=== PATIENT | male | born 1945 | race Caucasian/White ===

== ENCOUNTER 2018-01-18 20:12 | Observation (INO) ==
[2018-01-19] MEDS ORDERED: *HR* LORazepam 2 MG/ML VIAL IVP PRN (00:21)
[2018-01-19] MEDS ORDERED: Naloxone 0.4 MG/ML INJ IVP PRN (00:21)
[2018-01-19] MEDS ORDERED: 0.9 % Sodium Chloride 1,000 ML IVC SCH (00:30)
[2018-01-19 01:06] LABS: Basophils % 0.4 %; Eosinophils % 0.4 %; Hemoglobin 14.5 g/dL (12.9-16.9); Immature Granulocytes % 0.1 % (0-4); Lymphocytes % 13.5 %; Mean Corpuscular HGB Conc 34.5 g/dL (31.6-35.5); Mean Corpuscular Hemoglobin 33.3 pg (28.0-33.3); Mean Corpuscular Volume 96.6 fL (83.0-100.0); Mean Platelet Volume 9.2 fL (9.4-12.4); Monocytes # 0.7 K/mcL (0.0-1.3); Neutrophils # 5.6 K/mcL (1.6-8.9); Platelet Count 250 K/mcL (140-400); Red Blood Count 4.35 M/mcL (4.19-5.50); Red Cell Distribution Width 14.6 % (11.5-14.5); Segmented Neutrophils % 76.6 %
[2018-01-19 01:10] LABS: Prothrombin Time 11.7 Seconds (9.4-12.1)
[2018-01-19 01:32] LABS: Alanine Aminotransferase 37 Units/L (7-52); Albumin 4.2 g/dL (3.5-5.7); Albumin/Globulin Ratio 1.6 (1.1-2.2); Alkaline Phosphatase 109 Units/L (34-104); Aspartate Amino Transferase 48 Units/L (13-39); BUN/Creatinine Ratio 23 (6-26); Bilirubin,Total 1.3 mg/dL (0.3-1.0); Blood Urea Nitrogen 20 mg/dL (8-23); Calcium 9.5 mg/dL (8.6-10.3); Carbon Dioxide 29 mEq/L (23-29); Chloride 102 mEq/L (98-107); Chol/HDL Ratio 1.8 (0-4.9); Cholesterol 169 mg/dL (< 200); Globulin 2.6 g/dL (2.4-3.5); Glucose 122 mg/dL (70-105); HDL Cholesterol 92 mg/dL (40-59); LDL Cholesterol,Calculated 68 mg/dL (0-99); Magnesium 2.2 mg/dL (1.6-2.6); Osmolality,Calculated 290 (280-300); Potassium 3.3 mEq/L (3.5-5.1); Sodium 138 mEq/L (136-145); Total Protein 6.8 g/dL (6.4-8.9); Triglycerides 47 mg/dL (< 150); eGFR For Non-African Americans > 60 (> 60)
[2018-01-19 01:44] LABS: Thyroid Stimulating Hormone 0.783 mcIU/mL (0.340-5.600)
[2018-01-19 01:51] LABS: Amphetamine Screen,Urine Negative ng/mL (Cutoff=1000); Barbiturate Screen,Urine Negative ng/mL (Cutoff=200); Benzodiazepines Screen,Urine Negative ng/mL (Cutoff=200); Cannabinoid Screen,Urine Negative ng/mL (Cutoff = 50); Cocaine Screen,Urine Negative ng/mL (Cutoff= 300); Opiate Screen,Urine Negative ng/mL (Cutoff=300); Phencyclidine Screen,Urine Negative ng/mL (Cutoff=25)
--- NOTE | 2018-01-19 02:35 | Internal Med History&Physical ---
Date of Encounter: 01/18/18 Time of Encounter: 23:00 Internal Medicine - H&P: HPI Chief complaint: new atrial fibrillation/RVR Admitted From: Hospital to Hospital Transfer Plans for Post Hospital Care: Home History of present illness: Mr. Zapata is a 72 year old male who presents in transfer from [facility] ER for concerns of new onset atrial fibrillation with rapid ventricular response. He was at a local [facility] when he was noted to become lightheaded and dizzy with racing heartbeat. He was brought to the ER in [place] where he was found to have evidence of atrial fibrillation with rapid ventricular response. He was given a dose of Cardizem with stabilization of rate control. Arrangements were then made to transfer patient to [facility] for ongoing workup and care. Upon arrival, I saw the patient on the floor shortly after he arrived. He appeared to be rate controlled but hypertensive. He also appeared to be somewhat intoxicated according to nursing staff. When I saw him, he was quite verbal, a little agitated, and a little jittery. He admits to occasional heavy alcohol use but denies any recent use. He has been in retirement for less than 24 hours. His last use was about 36 hours ago when he drank over 20 shots of vodka. He admits to occasional heavy use of alcohol roughly 3-4 times a week. He denies any prior history of heart problems. He admits to having blood pressure problems but he's been out of his blood pressure medications for a few weeks now. He denies any chest pain, shortness of breath, vomiting, or diarrhea. He has had palpitations and lightheadedness in retirement which prompted him to go the ER. Past Med Surg Social Fam HX - Past Medical History Attestation: Yes The following information was validated with the patient. Source: patient, other ([facility] ER notes) Medical history: hypertension Additional medical history: heavy alcohol use Psychiatric history: no psych history - Past Surgical History Surgical History: no surgical history - Social History Smoking Status: Never smoker Smokeless Tobacco Status: No Alcohol use: none Drug use: none Current living situation: Home - Independent Activity Level: Independent ambulation Recent Out of Country Travel Within the Last 8 Weeks: No - Family History Mother History Unknown: Yes Father History Unknown: Yes Internal Medicine - H&P: Meds Hydrochlorothiazide [Microzide] 12.5 mg PO DAILY 03/17/15 [History] Lisinopril [Zestril] 10 mg PO DAILY 03/17/15 [History] Metoprolol [Lopressor] 25 mg PO BID 03/17/15 [History] 3 Allergy/AdvReac Type Severity Reaction Status Date / Time No Known Allergies Allergy Verified 03/17/15 23:00 - Constitutional Constitutional: no chills, no fever(s), no night sweats - EENT Eyes: no blurry vision, no change in vision Ears: no ear pain, no tinnitus Nose, mouth and throat: no nasal congestion, no sinus pressure, no sore throat - Cardiovascular Cardiovascular ROS IM: irregular heart rhythm, lightheadedness, palpitations, no chest pain, no dyspnea, no syncope - Respiratory Respiratory: no cough, no hemoptysis, no chest congestion, no excessive phlegm production - Gastrointestinal Gastrointestinal: no abdominal pain, no diarrhea, no hematemesis, no hematochezia, no melena, no vomiting - Genitourinary Genitourinary ROS male: no dysuria, no flank pain, no hematuria - Musculoskeletal Musculoskeletal ROS IM: no arthralgias, no back pain - Integumentary Integumentary IM: no rash, no jaundice - Neurological Neurological ROS: dizziness, no focal weakness, no frequent falls, no headache(s ) - Psychiatric Psychiatric: anxiety, no depression - Endocrine Endocrine IM: no polydipsia, no polyuria - Hematologic/Lymphatic Hematologic/Lymphatic: no easy bruising - Allergic/Immunologic Allergic/Immunologic: no wheezing, no GI upset with certain foods - Constitutional Vitals: Temp Pulse Resp BP Pulse Ox 97.9 F 80 22 180/110 97 01/19/18 00:00 01/19/18 00:00 01/19/18 00:00 01/19/18 00:00 01/19/18 00:00 General appearance: Present: cooperative, disheveled, A&O X 3, answers questions appropriately Exam: anxious, jittery, suspect early etOH withdrawal - Head Head exam: Present: atraumatic, normal inspection - Eye Eye exam: Present: EOMI, PERRL. Absent: scleral icterus Pupils: Present: normal accommodation - ENT ENT exam: Present: mucous membranes dry, normal exam, normal oropharynx - Neck Neck exam general surgery: Present: full ROM, supple. Absent: tenderness, nuchal rigidity, thyromegaly - Respiratory Respiratory exam: Present: CTAB. Absent: chest wall tenderness, rales, respiratory distress, rhonchi, wheezes - Cardiovascular Cardiovascular exam: Present: irregular rhythm, +S1, +S2. Absent: diastolic murmur, systolic murmur, tachycardia - GI/Abdominal GI/Abdominal exam: Present: normal bowel sounds, soft. Absent: guarding, hepatomegaly, rebound, splenomegaly, tenderness - Extremities Exam Extremities exam: Present: full ROM, normal capillary refill, warm, radial pulses palpable and symmetrical. Absent: calf tenderness, pedal edema, tenderness - Back Exam Back exam: Absent: CVA tenderness (L), CVA tenderness (R) - Neurological Exam Neurological exam: Present: alert, CN II-XII intact, oriented X3, no focal deficits Additional comments: jittery, anxious, nervous, appears to be withdrawing from alcohol - Psychiatric Psychiatric exam: Present: agitated, anxious - Skin Skin exam: Present: dry, warm. Absent: rash Internal Med - H&P Results - Labs CBC & Chem 7: 01/19/18 00:50 01/19/18 00:50 Labs: Short CBC 01/19/18 Range/Units 00:50 WBC 7.3 (4.3-11.1) K/mcL Hgb 14.5 (12.9-16.9) g/dL Hct 42.0 (37.5-50.1) % Plt Count 250 (140-400) K/mcL Neutrophils # 5.6 (1.6-8.9) K/mcL BMP 01/19/18 00:50 Sodium 138 Potassium 3.3 L Chloride 102 Carbon Dioxide 29 BUN 20 Creatinine 0.88 Glucose 122 H Calcium 9.5 Cardiac Enzymes 01/19/18 Range/Units 00:50 Troponin I < 0.03 (< 0.04) ng/mL Liver Function 01/19/18 Range/Units 00:50 Total Bilirubin 1.3 H (0.3-1.0) mg/dL AST 48 H (13-39) Units/L ALT 37 (7-52) Units/L Alkaline Phosphatase 109 H (34-104) Units/L Albumin 4.2 (3.5-5.7) g/dL - EKG Data -: EKG Interpreted by Myself - EKG Data Prior EKG available for review: no EKG comments: 01/19/18 02:42 atrial fibrillation w RVR -- [facility] ER EKG reviewed - Diagnostic Studies Chest x-ray Status: image reviewed by me (negative) - Assessment and plan (1) Atrial fibrillation with RVR Current Visit: Yes Status: Acute Assessment and plan: 1. Currently rate controlled but still in atrial fibrillation. 2. Suspect "Holiday Heart" due to excessive etOH roughly [address] on BB and monitor on telemetry. 4. Trend troponins, EKG's, correct electrolytes, and check TSH. 5. Given alcohol abuse and current etOH withdrawal, patient at risk for falls, especially on anticoagulation. Need to start anti-coagulation cautiously if patient does not convert into NSR by tomorrow. 6. ECHO ordered. (2) Alcohol withdrawal Current Visit: Yes Status: Acute Assessment and plan: 1. Will place on CIWA protocol. 2. MVI/thiamine/folate per IVF. 3. May need to schedule Librium in addition to CIWA meds. 4. Urine drug screen and etOH level ordered. Qualifiers: Complication of substance-induced condition: uncomplicated Qualified Code(s ): F10.230 - Alcohol dependence with withdrawal, uncomplicated (3) Hypertension Current Visit: Yes Status: Chronic Assessment and plan: 1. Will place on BB and PRN hydralazine until home meds can be verified. 2. Likely precipitated by etOH withdrawal -- treat withdrawal as well. Qualifiers: Hypertension type: essential hypertension Qualified Code(s): I10 - Essential (primary) hypertension (4) DVT prophylaxis Current Visit: Yes Status: Acute Assessment and plan: 1. Heparin SQ for now. 2. May need to convert to full anti-coagulation pending above issues.
[2018-01-19] MEDS: *HR* Heparin 5,000 UNIT/ML VIAL SQ SCH ×2 (05:38→18:10)
[2018-01-19 08:54] LABS: BUN/Creatinine Ratio 21 (6-26); Blood Urea Nitrogen 16 mg/dL (8-23); Calcium 9.5 mg/dL (8.6-10.3); Carbon Dioxide 29 mEq/L (23-29); Chloride 100 mEq/L (98-107); Glucose 136 mg/dL (70-105); Osmolality,Calculated 285 (280-300); Potassium 3.5 mEq/L (3.5-5.1); Sodium 136 mEq/L (136-145); eGFR For Non-African Americans > 60 (> 60)
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
[2018-01-19] MEDS ORDERED: hydrALAZINE 10 MG TABLET PO PRN (10:53)
[2018-01-19] MEDS: Thiamine (B-1) 100 MG TABLET PO SCH (15:45)
[2018-01-19] MEDS: Multivit/Ca/Min/Fe/FA 1 TAB TABLET PO SCH (15:45)
[2018-01-19] MEDS: Folic Acid 1 MG TABLET PO SCH (15:45)
[2018-01-19] MEDS ORDERED: Thiamine (B-1) 100 MG, Folic Acid 1 MG, MVI, adult with vitamin K 10 ML in 0.9 % Sodi... IVPB SCH (18:00)
[2018-01-19] MEDS ORDERED: Melatonin 3 MG TABLET PO PRN (21:57)
[2018-01-20 05:09] LABS: Basophils % 0.6 %; Eosinophils # 0.1 K/mcL (0.0-0.6); Eosinophils % 1.4 %; Hematocrit 41.3 % (37.5-50.1); Hemoglobin 14.4 g/dL (12.9-16.9); Immature Granulocytes % 0.3 % (0-4); Lymphocytes # 1.3 K/mcL (0.6-4.6); Lymphocytes % 17.8 %; Mean Corpuscular HGB Conc 34.9 g/dL (31.6-35.5); Mean Corpuscular Hemoglobin 34.4 pg (28.0-33.3); Mean Corpuscular Volume 98.8 fL (83.0-100.0); Mean Platelet Volume 9.6 fL (9.4-12.4); Monocytes # 0.6 K/mcL (0.0-1.3); Neutrophils # 5.1 K/mcL (1.6-8.9); Platelet Count 206 K/mcL (140-400); Red Blood Count 4.18 M/mcL (4.19-5.50); Red Cell Distribution Width 14.4 % (11.5-14.5); Segmented Neutrophils % 71.9 %
[2018-01-20 05:31] LABS: Alanine Aminotransferase 25 Units/L (7-52); Albumin 3.6 g/dL (3.5-5.7); Albumin/Globulin Ratio 1.6 (1.1-2.2); Alkaline Phosphatase 93 Units/L (34-104); Aspartate Amino Transferase 28 Units/L (13-39); BUN/Creatinine Ratio 20 (6-26); Bilirubin,Total 0.9 mg/dL (0.3-1.0); Blood Urea Nitrogen 17 mg/dL (8-23); Calcium 9.2 mg/dL (8.6-10.3); Carbon Dioxide 28 mEq/L (23-29); Chloride 102 mEq/L (98-107); Globulin 2.2 g/dL (2.4-3.5); Glucose 121 mg/dL (70-105); Osmolality,Calculated 289 (280-300); Potassium 3.4 mEq/L (3.5-5.1); Sodium 138 mEq/L (136-145); Total Protein 5.8 g/dL (6.4-8.9); eGFR For Non-African Americans > 60 (> 60)
[2018-01-20] MEDS: *HR* Heparin 5,000 UNIT/ML VIAL SQ SCH ×2 (06:05→16:34)
[2018-01-20] MEDS: Multivit/Ca/Min/Fe/FA 1 TAB TABLET PO SCH (08:22)
[2018-01-20] MEDS: Thiamine (B-1) 100 MG TABLET PO SCH (08:22)
[2018-01-20] MEDS: Folic Acid 1 MG TABLET PO SCH (08:22)
[2018-01-20 08:59] LABS: Estimated Average Glucose 120 mg/dl; Hemoglobin A1C 5.8 %
[2018-01-20] MEDS ORDERED: *HR* Metoprolol 5 MG/5 ML VIAL IVP PRN (09:24)
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
[2018-01-20] MEDS: Lisinopril-HCTZ 20-12.5mg TABLET PO SCH ×2 (11:43→21:35)
--- NOTE | 2018-01-20 13:59 | Cardiology Consult Note ---
Date of Encounter: 01/20/18 Time of Encounter: 13:52 Assessment and Plan (1) Atrial fibrillation with RVR Current Visit: Yes Status: Acute (2) Heart failure with reduced ejection fraction Current Visit: Yes Status: Acute Qualifiers: Heart failure chronicity: acute Qualified Code(s): I50.21 - Acute systolic (congestive) heart failure Discussion w patient/family: The patient currently has a CHADSVASC score of 4. It is recommended that he be on anticoagulation therapy, but due to his history of heavy alcohol use he should wait to start therapy until he follows up outpatient to prevent complications associated with concurrent alcohol use and bleeding. The patient will also need a cardiac cath at some point to evaluate his decreased EF but this can also be managed as an outpatient. The assessment and plan as outlined above was discussed with the patient and/or family members who expressed understanding and agreement. All questions were answered. Thank you for involving us in the care of your patient. Please call with any questions. History of Present Illness Consult date: 01/20/18 Requesting physician: Kassidy Bryant Consult reason: afib RVR, reduced EF Chief complaint: dizziness w/ racing heartbeat History of present illness: Mr. Zapata is a 72 year old male who was transferred to [facility] after he was found to have new onset atrial fibrillation. He states he went to the [facility] ER from skilled nursing because he was lightheaded and dizzy and was intoxicated at this time. He also admits to some intermittent shortness of breath and palpitations over the past week but he attributes this to his high BP as he was not taking his medication. He has a past medical history of hypertension but denies other illnesses. He states he takes 3 medications for BP (HCTZ/Lisinopril, Clonidine and Metoprolol) and when he is on his medication his BP is 120/80 and his heart rate is in the 90s. He admits to undergoing a cardiac cath with placement of a stent about 15 years ago but states he has not had any cardiac procedures since this time. He admits to drinking heavily over the last 3 weeks, stating he has been consuming at least half a bottle of vodka per day with his maximum being 14 shots of vodka. Before this time he was drinking up to 10 beers per day, most days, over the past 15 years. He is a former smoker with 40 pack years but quit smoking over 10 years ago. He denies family history of any cardiac problems to his knowledge. Past Med Surg Social Fam HX - Past Medical History Attestation: Yes The following information was validated with the patient. Source: patient Medical history: hypertension Additional medical history: heavy alcohol use Psychiatric history: no psych history - Past Surgical History Surgical History: angioplasty/stent - Social History Smoking Status: Former smoker Smokeless Tobacco Status: No Alcohol use: none, heavy Drug use: none Occupational status: retired Current living situation: With Family - Family History Mother History Unknown: Yes Father History Unknown: Yes Medications and Allergies Metoprolol [Lopressor] 25 mg PO DAILY 03/17/15 [History] Lisinopril/Hydrochlorothiazide [Zestoretic 20-12.5 mg Tablet] 1 tab PO BID 01/19 [History] cloNIDine HCl [CloNIDine HCl] 0.1 mg PO BID 01/19/18 [History] 3 Allergy/AdvReac Type Severity Reaction Status Date / Time No Known Allergies Allergy Verified 01/19/18 13:25 All Systems Review: The remainder of the systems were reviewed and are negative - Constitutional Constitutional: no fever(s), no headache(s), no weight gain - EENT Eyes: no blurred vision, no loss of vision - Cardiovascular Cardiovascular: dyspnea on exertion, irregular heart rhythm, palpitations, no chest pain at rest, no chest pain with exertion, no dyspnea at rest, no radiating jaw, neck or arm pain, no leg edema, no orthopnea, no syncope - Respiratory Respiratory: dyspnea, no cough - Gastrointestinal Gastrointestinal: no abdominal pain, no nausea - Genitourinary Genitourinary: no dysuria, no hematuria - Musculoskeletal Musculoskeletal: no muscle cramps, no muscle weakness - Integumentary Integumentary: no rash - Neurological Neurological: dizziness, no abnormal speech, no syncope Physical Examination Vital Signs, Last 4 Hours Temp Pulse Resp BP Pulse Ox 01/20/18 11:30 97.9 F 103 16 166/104 95 General: Conversant HEENT: Atraumatic, Normocephaly, Mucus Membranes Moist Neck: No JVD, Normal carotid pulses Cardiac: No Murmur, Other (irregular HR) Lungs: Normal Breath Sounds, No Wheeze, Rales, Rhonchi Neuro: Alert and responsive, No focal deficits noted Abdomen: Soft, Non-Tender Skin: No rashes noted on visualized skin Musculoskeletal: No Chest Wall Tenderness Extremities: No Edema, Normal Pulses Results 01/20/18 04:15 01/20/18 04:15 Lab Results 01/20/18 01/20/18 04:15 04:15 WBC 7.1 Hgb 14.4 Hct 41.3 Plt Count 206 Sodium 138 Potassium 3.4 L Chloride 102 Carbon Dioxide 28 BUN 17 Creatinine 0.84 Glucose 121 H Calcium 9.2 Total Bilirubin 0.9 AST 28 ALT 25 Alkaline Phosphatase 93 Consult Discharge Plan - Plan Referrals: Corin Cannon, MANAGER INFUSION [Advanced Practice Nurse] - (patient said he didn't want me to set him up with an appoinment because he doesn't have any money to pay for the visit.)
[2018-01-20] MEDS ORDERED: hydrALAZINE 10 MG TABLET PO PRN (14:00)
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
[2018-01-20] MEDS ORDERED: Isovue-370 500 ML INFUS..BTL IV ONE (17:08)
--- NOTE | 2018-01-20 17:13 | Podiatry Consult Note ---
Date of Encounter: 01/21/18 Time of Encounter: 17:00 Assessment and Plan (1) Left foot pain Current visit: Yes Status: Acute Examined at bedside- There is noted warmth of entire left foot- with patient reports of pain to the dorsal foot just proximal to the ankle joint. There is a fluctuant mass noted in this area measuring [id number] with pain to touch- concerning for abscess formation There is a healed abrasion measuring 1cmx0.3cm to the plantar aspect of toe #1 left- possible entry point. There are no other ulcerations or abrasions noted to foot Will order uric acid to rule out gout however suspicion of gout is minimal Will order CT scan to assess for abscess formation- Xray is noted and no osseous abnormality was noted Continue antibiotic therapy Monitor VS and labwork Will follow up in AM when CT results have posted History of Present Illness HPI: Mr. Zapata is a 72 year old male who was brought to [facility] from [facility] and admitted for afib- patient has been consulted to podiatry services regarding patient complaints of a painful left foot. Nurse notes that great toe was red this AM and she has watched it extend back as the day went on. Patient reports that he only recalls it starting to hurt this am. There is a healing abrasion noted to the plantar aspect of the toe - patient reports that he does not know when or how that happened. Patient is a poor historian. he admits to a large amount of alcohol consumption daily. Patient reports severe pain to foot with palpation. Patient denies any other known lesions or open areas. Patient denies any trauma to foot. Past Med Surg Social Fam HX - Past Medical History Medical history: hypertension Additional medical history: heavy alcohol use Psychiatric history: no psych history - Past Surgical History Surgical History: angioplasty/stent - Social History Smoking Status: Former smoker Smokeless Tobacco Status: No Alcohol use: none, heavy Drug use: none - Family History Mother History Unknown: Yes Father History Unknown: Yes Medications and Allergies Lisinopril/Hydrochlorothiazide [Zestoretic 20-12.5 mg Tablet] 1 tab PO BID 01/19 [History] Aspirin 81 mg PO DAILY tab.chew 01/21/18 [Rx] Cephalexin [Keflex] 500 mg PO Q6H 10 Days capsule 01/21/18 [Rx] Folic Acid 1 mg PO DAILY #30 tablet 01/21/18 [Rx] Metoprolol [Lopressor] 25 mg PO BID 30 Days tablet 01/21/18 [Rx] Multivit/Ca/Min/Fe/FA [Thera M Plus] 1 tab PO DAILY #30 tablet 01/21/18 [Rx] Thiamine (B-1) [Vitamin B-1] 100 mg PO DAILY #30 tablet 01/21/18 [Rx] amLODIPine [Norvasc] 5 mg PO DAILY #30 tablet 01/21/18 [Rx] 3 Allergy/AdvReac Type Severity Reaction Status Date / Time No Known Allergies Allergy Verified 01/19/18 13:25 All Systems Reviewed: The remainder of the systems were reviewed and are negative Physical Exam - Constitutional Vitals: Temp Pulse Resp BP Pulse Ox 98.5 F 88 16 145/91 94 01/20/18 15:09 01/20/18 15:09 01/20/18 15:09 01/20/18 15:09 01/20/18 15:09 Exam: General Examination: CONSTITUTIONAL: Alert, oriented, in no acute distress, non-toxic. EXTREMITIES: CFT 3 seconds all toes. Edema +1 right and 2+ to dorsal aspect of foot leg and pedal pulses palpable. SKIN: Skin with decreased turgor, decreased subcutaneous tissue, skin thin and shiny with trophic changes associated with comorbidities as described in history.. There is noted edema and erytehma to left foot. Starting at great toe and extending along dorsal aspect of foot. There is an area of fluctuance noted just distal to the ankle, dorsal foot- [id number]. Pain associated with palpation of area. There is no noted ulceration however there is a small healed dry scab to the plantar aspect of toe #1 right- unknown cause. 1cmx0.2cm No limited ROM. No weakness noted. NEUROLOGIC: Grossly intact epicritic and vibratory sensation from toes to tibia, evidenced with use of monofilament 5.07 and tuning fork at 128 CPS. Patient complains of paresthesias and dysesthesias. There is no clinical evidence of loss of protective sensation. Results - Labs Result Diagrams: 01/21/18 05:41 01/21/18 05:41 Labs: Abnormal lab results RBC 4.18 M/mcL (4.19-5.50) L 01/20/18 04:15 MCH 34.4 pg (28.0-33.3) H 01/20/18 04:15 Potassium 3.4 mEq/L (3.5-5.1) L 01/20/18 04:15 Glucose 121 mg/dL (70-105) H 01/20/18 04:15 Hemoglobin A1c 5.8 % (-5.6) H 01/20/18 04:15 Serum Total Protein 5.8 g/dL (6.4-8.9) L 01/20/18 04:15 Globulin 2.2 g/dL (2.4-3.5) L 01/20/18 04:15 HDL Cholesterol 92 mg/dL (40-59) H 01/19/18 00:50 H & H 01/20/18 Range/Units 04:15 Hgb 14.4 (12.9-16.9) g/dL Hct 41.3 (37.5-50.1) % All other labs normal. Consult Discharge Plan - Plan Instructions: Cephalexin (By mouth), Metoprolol (By mouth), Folic Acid (By mouth), Multivitamins, Adult Formula (By mouth), Amlodipine (By mouth), Vitamin B Complex (By mouth), Atrial Fibrillation (DC), Abuse of Alcohol (DC), Abuse of Alcohol (GEN), Chronic Hypertension (DC) Additional Instructions: Take keflex every 6 hours for 10 days. Follow up with podiatry clinic within 7 days for further evaluation of painful left foot. Continue taking norvasc 5mg once daily, lisinopril/HCTZ 20-12.5mg daily, and metoprolol 25mg twice per day. Do not resume taking clonidine. Follow up with your PCP in 3-5 days. Follow up with cardiology as outpatient for further evaluation of new-onset atrial fibrillation. Return to the ED if you develop fever, chills, or other signs of infection, or if new concerns arise. Referrals: Noel Galo DPM [Partnered Physician] - Corin Cannon DISTRIBUTION ACCOUNTING CLERK [Advanced Practice Nurse] - (patient said he didn't want me to set him up with an appoinment because he doesn't have any money to pay for the visit.) Prescriptions: amLODIPine [Norvasc] 5 mg PO DAILY #30 tablet Cephalexin [Keflex] 500 mg PO Q6H 10 Days capsule Folic Acid 1 mg PO DAILY #30 tablet Metoprolol [Lopressor] 25 mg PO BID 30 Days tablet Multivit/Ca/Min/Fe/FA [Thera M Plus] 1 tab PO DAILY #30 tablet Thiamine (B-1) [Vitamin B-1] 100 mg PO DAILY #30 tablet
[2018-01-21] MEDS: *HR* Heparin 5,000 UNIT/ML VIAL SQ SCH (06:15)
[2018-01-21 06:16] LABS: Basophils % 0.6 %; Eosinophils # 0.1 K/mcL (0.0-0.6); Eosinophils % 1.4 %; Hematocrit 40.1 % (37.5-50.1); Immature Granulocytes % 0.4 % (0-4); Lymphocytes # 1.2 K/mcL (0.6-4.6); Lymphocytes % 17.2 %; Mean Corpuscular HGB Conc 34.9 g/dL (31.6-35.5); Mean Corpuscular Hemoglobin 34.7 pg (28.0-33.3); Mean Corpuscular Volume 99.3 fL (83.0-100.0); Mean Platelet Volume 9.4 fL (9.4-12.4); Monocytes # 0.6 K/mcL (0.0-1.3); Monocytes % 8.3 %; Neutrophils # 5.2 K/mcL (1.6-8.9); Platelet Count 198 K/mcL (140-400); Red Blood Count 4.04 M/mcL (4.19-5.50); Red Cell Distribution Width 14.2 % (11.5-14.5); Segmented Neutrophils % 72.1 %
[2018-01-21 06:39] LABS: Alanine Aminotransferase 21 Units/L (7-52); Albumin 3.6 g/dL (3.5-5.7); Albumin/Globulin Ratio 1.4 (1.1-2.2); Alkaline Phosphatase 92 Units/L (34-104); Aspartate Amino Transferase 24 Units/L (13-39); BUN/Creatinine Ratio 16 (6-26); Bilirubin,Total 0.9 mg/dL (0.3-1.0); Blood Urea Nitrogen 14 mg/dL (8-23); Calcium 8.9 mg/dL (8.6-10.3); Carbon Dioxide 29 mEq/L (23-29); Chloride 100 mEq/L (98-107); Globulin 2.5 g/dL (2.4-3.5); Glucose 137 mg/dL (70-105); Osmolality,Calculated 283 (280-300); Potassium 3.4 mEq/L (3.5-5.1); Sodium 135 mEq/L (136-145); Total Protein 6.1 g/dL (6.4-8.9); eGFR For Non-African Americans > 60 (> 60)
[2018-01-21] MEDS: Lisinopril-HCTZ 20-12.5mg TABLET PO SCH (09:02)
[2018-01-21] MEDS: Thiamine (B-1) 100 MG TABLET PO SCH (09:02)
[2018-01-21] MEDS: Multivit/Ca/Min/Fe/FA 1 TAB TABLET PO SCH (09:02)
[2018-01-21] MEDS: Folic Acid 1 MG TABLET PO SCH (09:03)
[2018-01-21] MEDS ORDERED: cloNIDine HCl 0.1 MG TABLET PO SCH (10:00)
[2018-01-21] MEDS ORDERED: Piperacillin/Tazobactam 3.375 GM in 0.9 % Sodium Chloride Mini Bag 100 ML IVPB SCH (11:00)
[2018-01-21] MEDS ORDERED: amLODIPine 5 MG TABLET PO SCH (11:30)
[2018-01-21] MEDS ORDERED: Aspirin 81 MG TAB.CHEW PO SCH (11:30)
--- NOTE | 2018-01-21 16:19 | Podiatry Progress Note ---
Date of Encounter: 01/21/18 Time of Encounter: 12:00 - Assessment and Plan (1) Left foot pain Status: Acute Examined at bedside- There is noted warmth of entire left foot- with patient reports of pain to the dorsal foot just proximal to the ankle joint. There is a fluctuant mass noted in this area measuring [id number] with pain to touch- concerning for abscess formation There is a healed abrasion measuring 1cmx0.3cm to the plantar aspect of toe #1 left- possible entry point. There are no other ulcerations or abrasions noted to foot Uric acid 6.1 and minimal concern for acute gout attack Ct scan shows no fluid collection Still continue to note fluctuant mass to dorsal aspect of foot Spoke with patient about aspirating lesion Informed consent obtained Cleansed with alcohol - injected with 3cc lidocaine- noting profound anesthesia the area of suspicion was injected with a sharp 18g needle and aspiration attempted- scant amount of blood was returned but no drainage. Aspirated around mulitple planes surrounding mass- again no drainage extracted Removed needle- no further bleeding noted Bandaid applied Continue current antibiotic therapy- there has been noted improvement If foot continues to have noted edema and erythema without improvement consider MRI Consider ID consult at this time Xray is noted and no osseous abnormality was noted Subjective Interval history: Following patient regarding edema, warmth, erythema and pain of left foot with possible abscess. Patient resting comfortably in bed on arrival. States pain has decreased some. States he can stand for it to be touched now. Patient denies any fevers, chills n/v or flu like symptoms. Patient has been receiving IV antibiotics. No reported fevers. Objective - Vital Signs Vital Signs: Vital Signs Temp Pulse Resp BP Pulse Ox 01/21/18 11:32 98.1 F 85 16 148/113 97 01/21/18 07:46 98.0 F 97 16 151/101 97 01/21/18 04:30 97.9 F 93 15 149/93 97 01/21/18 00:07 98.8 F 75 16 128/82 97 01/20/18 19:27 98.7 F 85 15 134/99 95 Intake and Output 01/21/18 01/21/18 01/21/18 07:59 15:59 23:59 Intake Total 0 / 0 240 / 240 Output Total 200 / 200 Balance -200 / -200 240 / 240 Intake: Oral 0 / 0 240 / 240 Output: Urine 200 / 200 Other: Meal Lunch Percent of Meal Consumed 0% Stool Size Small # Bowel Movements 1 Weight 81 kg Patient Weight 01/21/18 23:59 Weight 81 kg - Exam Exam: General Examination: CONSTITUTIONAL: Alert, oriented, in no acute distress, non-toxic. EXTREMITIES: CFT 3 seconds all toes. Edema +1 right and 2+ to dorsal aspect of foot leg and pedal pulses palpable. SKIN: Skin with decreased turgor, decreased subcutaneous tissue, skin thin and shiny with trophic changes associated with comorbidities as described in history.. There is noted edema and erytehma to left foot. Starting at great toe and extending along dorsal aspect of foot. There is improvement in appearance of erythema today as compared to yesterday- There is a continued small area of fluctuance noted just distal to the ankle, dorsal foot- [id number]. This has depleted some since exam yesterday- edema more diffuse. Pain associated with palpation of area. There is no noted ulceration however there is a small healed dry scab to the plantar aspect of toe #1 right- unknown cause. 1cmx0.2cm No limited ROM. No weakness noted. NEUROLOGIC: Grossly intact epicritic and vibratory sensation from toes to tibia, evidenced with use of monofilament 5.07 and tuning fork at 128 CPS. Patient complains of paresthesias and dysesthesias. There is no clinical evidence of loss of protective sensation. - Lab Result Diagrams: 01/21/18 05:41 01/21/18 05:41 Labs: Abnormal lab results RBC 4.04 M/mcL (4.19-5.50) L 01/21/18 05:41 MCH 34.7 pg (28.0-33.3) H 01/21/18 05:41 Sodium 135 mEq/L (136-145) L 01/21/18 05:41 Potassium 3.4 mEq/L (3.5-5.1) L 01/21/18 05:41 Glucose 137 mg/dL (70-105) H 01/21/18 05:41 Hemoglobin A1c 5.8 % (-5.6) H 01/20/18 04:15 Serum Total Protein 6.1 g/dL (6.4-8.9) L 01/21/18 05:41 HDL Cholesterol 92 mg/dL (40-59) H 01/19/18 00:50 Consult Discharge Plan - Plan Instructions: Cephalexin (By mouth), Metoprolol (By mouth), Folic Acid (By mouth), Multivitamins, Adult Formula (By mouth), Amlodipine (By mouth), Vitamin B Complex (By mouth), Atrial Fibrillation (DC), Abuse of Alcohol (DC), Abuse of Alcohol (GEN), Chronic Hypertension (DC) Additional Instructions: Take keflex every 6 hours for 10 days. Follow up with podiatry clinic within 7 days for further evaluation of painful left foot. Continue taking norvasc 5mg once daily, lisinopril/HCTZ 20-12.5mg daily, and metoprolol 25mg twice per day. Do not resume taking clonidine. Follow up with your PCP in 3-5 days. Follow up with cardiology as outpatient for further evaluation of new-onset atrial fibrillation. Return to the ED if you develop fever, chills, or other signs of infection, or if new concerns arise. Referrals: Noel Galo DPM [Partnered Physician] - Corin Cannon CNP [Advanced Practice Nurse] - (patient said he didn't want me to set him up with an appoinment because he doesn't have any money to pay for the visit.) Prescriptions: amLODIPine [Norvasc] 5 mg PO DAILY #30 tablet Cephalexin [Keflex] 500 mg PO Q6H 10 Days capsule Folic Acid 1 mg PO DAILY #30 tablet Metoprolol [Lopressor] 25 mg PO BID 30 Days tablet Multivit/Ca/Min/Fe/FA [Thera M Plus] 1 tab PO DAILY #30 tablet Thiamine (B-1) [Vitamin B-1] 100 mg PO DAILY #30 tablet
[2018-01-21 16:30] VITALS: BP 189/113
[2018-01-21] MEDS ORDERED: Aminoglycoside Consult 1 EACH MC ONE (17:31)
== END 2018-01-21 17:32 | disposition home or self-care (01) ==
LOC: 2NENU → SUATTDRO 21:25
PROVIDERS: ADMIT Family Medicine; ATTEND Internal Medicine

== ENCOUNTER 2018-01-23 16:22 | Inpatient (IN) ==
[2018-01-23] MEDS ORDERED: Piperacillin/Tazobactam 3.375 GM in 0.9 % Sodium Chloride Mini Bag 100 ML IVPB ONE (16:46)
[2018-01-23] MEDS ORDERED: 0.9 % Sodium Chloride 1,000 ML IVC ONE (16:48)
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
[2018-01-23 17:04] LABS: Basophils % 0.3 %; Eosinophils % 0.2 %; Hematocrit 42.1 % (37.5-50.1); Hemoglobin 14.9 g/dL (12.9-16.9); Immature Granulocytes % 0.4 % (0-4); Lymphocytes # 1.5 K/mcL (0.6-4.6); Lymphocytes % 16.2 %; Mean Corpuscular HGB Conc 35.4 g/dL (31.6-35.5); Mean Corpuscular Hemoglobin 34.7 pg (28.0-33.3); Mean Corpuscular Volume 97.9 fL (83.0-100.0); Mean Platelet Volume 9.2 fL (9.4-12.4); Monocytes % 10.1 %; Neutrophils # 6.9 K/mcL (1.6-8.9); Platelet Count 238 K/mcL (140-400); Red Cell Distribution Width 13.7 % (11.5-14.5); Segmented Neutrophils % 72.8 %
[2018-01-23 17:16] LABS: INR 1.1; Prothrombin Time 12.1 Seconds (9.4-12.1)
[2018-01-23 17:25] LABS: BUN/Creatinine Ratio 10 (6-26); Blood Urea Nitrogen 10 mg/dL (8-23); Calcium 9.6 mg/dL (8.6-10.3); Carbon Dioxide 27 mEq/L (23-29); Chloride 96 mEq/L (98-107); Glucose 156 mg/dL (70-105); Osmolality,Calculated 278 (280-300); Sodium 133 mEq/L (136-145); Troponin I < 0.03 ng/mL (< 0.04); eGFR For Non-African Americans > 60 (> 60)
[2018-01-23 17:54] LABS: Acetaminophen < 10 mcg/mL (10-20); Ethanol < 10 mg/dL (Less than 10); Salicylate < 2.5 mg/dL (15.0-30.0)
[2018-01-23] MEDS ORDERED: *HR* OxyCODONE Immed Rel 5 MG TABLET PO PRN (18:02)
[2018-01-23] MEDS ORDERED: traMADol 50 MG TABLET PO PRN (18:02)
[2018-01-23] MEDS ORDERED: Naloxone 0.4 MG/ML INJ IVP PRN (18:02)
[2018-01-23] MEDS ORDERED: Acetaminophen 325 MG TABLET PO PRN (18:02)
--- NOTE | 2018-01-23 18:12 | Emergency Department Note ---
Disposition Clinical Impression: Atrial fibrillation with RVR Chest pain Qualifiers: Chest pain type: unspecified Qualified Code(s): R07.9 - Chest pain, unspecified Cellulitis Qualifiers: Site of cellulitis: extremity Site of cellulitis of extremity: lower extremity Laterality: left Qualified Code(s): L03.116 - Cellulitis of left lower limb Disposition: Admitted As Inpatient Referrals: NONE,PCP [Primary Care Provider] - Forms: ED Satisfaction Letter General Adult HPI - General Chief complaint: ED Chest Pain Stated complaint: "Chest Tightness/Left Foot Infection/Pain" Time Seen by Provider: 01/23/18 16:28 Source: patient, family Mode of arrival: private vehicle Limitations: no limitations - History of Present Illness Pain Scale: 5 - Related Data Home Medications Medication Instructions Recorded Confirmed Lisinopril/Hydrochlorothiazide 1 tab PO BID 01/19/18 01/23/18 [Zestoretic 20-12.5 mg Tablet] Previous Rx's Medication Instructions Recorded Aspirin 81 mg PO DAILY tab.chew 01/21/18 Cephalexin [Keflex] 500 mg PO Q6H 10 Days capsule 01/21/18 Folic Acid 1 mg PO DAILY #30 tablet 01/21/18 Metoprolol [Lopressor] 25 mg PO BID 30 Days tablet 01/21/18 Multivit/Ca/Min/Fe/FA [Thera M 1 tab PO DAILY #30 tablet 01/21/18 Plus] Thiamine (B-1) [Vitamin B-1] 100 mg PO DAILY #30 tablet 01/21/18 amLODIPine [Norvasc] 5 mg PO DAILY #30 tablet 01/21/18 Allergies Allergy/AdvReac Type Severity Reaction Status Date / Time No Known Allergies Allergy Verified 01/19/18 13:25 Constitutional: Denies: fever, chills Eyes: Denies: vision change ENT ED: Denies: throat pain, congestion Cardiovascular: Reports: chest pain, palpitations. Denies: dyspnea on exertion Respiratory: Denies: cough, dyspnea Gastrointestinal: Denies: abdominal pain, nausea Genitourinary: Denies: dysuria Musculoskeletal: Denies: back pain Integumentary: Reports: other (Left foot redness and mild swelling) Neurological: Denies: headache, weakness Hematological/Lymphatic: Denies: easy bleeding Past Medical History - Past Medical History Medical history: Reports: atrial fibrillation, hypertension Surgical history: Reports: angioplasty/stent Psychiatric history: Reports: no psych history - Social History Smoking Status: Former smoker Smokeless Tobacco Status: No Alcohol use: Reports: heavy Drug use: Reports: none Physical Exam - General Limitations: no limitations General appearance: alert, in no apparent distress Course Vital Signs Temperature 98.4 F 01/23/18 16:26 Pulse Rate 142 01/23/18 16:26 Respiratory Rate 18 01/23/18 16:26 Blood Pressure 134/94 01/23/18 16:26 O2 Sat by Pulse Oximetry 98 01/23/18 16:26 Temperature 98.4 F 01/23/18 16:33 Pulse Rate 105 01/23/18 18:07 Respiratory Rate 20 01/23/18 18:07 Blood Pressure 142/103 01/23/18 18:07 O2 Sat by Pulse Oximetry 97 01/23/18 18:07 Oxygen Delivery Oxygen Delivery Room Air Medical Decision Making - Lab Data Result diagrams: 01/23/18 16:48 01/23/18 16:48 Lab Results 01/23/18 01/23/18 01/23/18 Range/Units 16:38 16:48 16:48 WBC 9.5 (4.3-11.1) K/mcL RBC 4.30 (4.19-5.50) M/mcL Hgb 14.9 (12.9-16.9) g/dL Hct 42.1 (37.5-50.1) % MCV 97.9 (83.0-100.0) fL MCH 34.7 H (28.0-33.3) pg MCHC 35.4 (31.6-35.5) g/dL RDW 13.7 (11.5-14.5) % Plt Count 238 (140-400) K/mcL MPV 9.2 L (9.4-12.4) fL Immature Gran % 0.4 (0-4) % Seg Neutrophils % 72.8 % Lymphocytes % 16.2 % Monocytes % 10.1 % Eosinophils % 0.2 % Basophils % 0.3 % Neutrophils # 6.9 (1.6-8.9) K/mcL Lymphocytes # 1.5 (0.6-4.6) K/mcL Monocytes # 1.0 (0.0-1.3) K/mcL Eosinophils # 0.0 (0.0-0.6) K/mcL Basophils # 0.0 (0.0-0.2) K/mcL PT 12.1 (9.4-12.1) Seconds INR 1.1 APTT 32.0 (26.0-36.0) Seconds Sodium 133 L (136-145) mEq/L Potassium 4.0 (3.5-5.1) mEq/L Chloride 96 L (98-107) mEq/L Carbon Dioxide 27 (23-29) mEq/L BUN 10 (8-23) mg/dL Creatinine 1.05 (0.70-1.30) mg/dL Est GFR ( Amer) > 60 (> 60) Est GFR (Non-Af Amer) > 60 (> 60) BUN/Creatinine Ratio 10 (6-26) Glucose 156 H (70-105) mg/dL Calculated Osmolality 278 L (280-300) Lactic Acid (0.5-2.2) mmol/L Calcium 9.6 (8.6-10.3) mg/dL Troponin I < 0.03 (< 0.04) ng/mL Salicylates < 2.5 L (15.0-30.0) mg/dL Acetaminophen < 10 L (10-20) mcg/mL Ethyl Alcohol < 10 (Less than 10) mg/dL 01/23/18 Range/Units 17:03 WBC (4.3-11.1) K/mcL RBC (4.19-5.50) M/mcL Hgb (12.9-16.9) g/dL Hct (37.5-50.1) % MCV (83.0-100.0) fL MCH (28.0-33.3) pg MCHC (31.6-35.5) g/dL RDW (11.5-14.5) % Plt Count (140-400) K/mcL MPV (9.4-12.4) fL Immature Gran % (0-4) % Seg Neutrophils % % Lymphocytes % % Monocytes % % Eosinophils % % Basophils % % Neutrophils # (1.6-8.9) K/mcL Lymphocytes # (0.6-4.6) K/mcL Monocytes # (0.0-1.3) K/mcL Eosinophils # (0.0-0.6) K/mcL Basophils # (0.0-0.2) K/mcL PT (9.4-12.1) Seconds INR APTT (26.0-36.0) Seconds Sodium (136-145) mEq/L Potassium (3.5-5.1) mEq/L Chloride (98-107) mEq/L Carbon Dioxide (23-29) mEq/L BUN (8-23) mg/dL Creatinine (0.70-1.30) mg/dL Est GFR ( Amer) (> 60) Est GFR (Non-Af Amer) (> 60) BUN/Creatinine Ratio (6-26) Glucose (70-105) mg/dL Calculated Osmolality (280-300) Lactic Acid 1.1 (0.5-2.2) mmol/L Calcium (8.6-10.3) mg/dL Troponin I (< 0.04) ng/mL Salicylates (15.0-30.0) mg/dL Acetaminophen (10-20) mcg/mL Ethyl Alcohol (Less than 10) mg/dL Attestation Statement - Attestation Attestation: I examined this patient and my medical decision-making was reviewed with the Resident Physician. I agree with the documented findings, disposition and treatment plan as described except to the extent set forth below. 72 year old male presents to the ED with complaints elevated heart rate and increased swelling and redness to his left foot. He was most recently admitted to the hospital and dsicharged about 2 days ago for simlair situation. Bi states that the antibitiocs that he has been taking at home has not improved and it looks as though it is getting worse. Bi is afib with RVR in the 140s and with fluids hydration as com down to 110s. Bi has been given vanc and zosyn for therapy and readmitted to the hosptal
--- NOTE | 2018-01-23 18:35 | Internal Med History&Physical ---
Date of Encounter: 01/23/18 Time of Encounter: 18:35 Internal Medicine - H&P: HPI History of present illness: Mr. Zapata is a 72 year old male with history of recent diagnosis atrial fibrillation, CAD, heart failure with reduced EF (40-45%), alcohol abuse, presented to ED for chest pain and worsening left foot cellulitis. Chest pain is located in lateral right pectoral region and left pectoral region and is not considered substernal. He describes it as sharp, non-radiating. There is no known alleviating or exacerbating factors that he can identify. He denies worsening with exertion. He admits to alcohol use, but states his last drink was four days ago. He was recently discharged from hospital 4 days ago for cellulitis and atrial fibrillation with RVR. An echocardiogram showed EF 40-45% . Podiatry evaluated patient during admission. He was discharged home on metoprolol and Keflex. There is currently a question as to patient's compliance with medications because he currently has a poor living situation. Left foot infection now worse and more painful. He denies SOB, fevers/chills, n /v, diaphoresis, foot drainage. In the ED patient was found to be in atrial fibrillation with RVR, with HR in 140s and he was given IV fluids and was started on Cardizem drip and heart rate improved to 100-110s. He was given Vancomycin, and Zosyn. He is currently in no acute distress. Past Med Surg Social Fam HX - Past Medical History Medical history: atrial fibrillation, hypertension Additional medical history: heavy alcohol use Psychiatric history: no psych history - Past Surgical History Surgical History: angioplasty/stent Additional surgical history: stent x1 - Social History Smoking Status: Former smoker Smokeless Tobacco Status: No Alcohol use: heavy Drug use: none Internal Medicine - H&P: Meds Lisinopril/Hydrochlorothiazide [Zestoretic 20-12.5 mg Tablet] 1 tab PO BID 01/19 [History] Aspirin 81 mg PO DAILY tab.chew 01/21/18 [Rx] Cephalexin [Keflex] 500 mg PO Q6H 10 Days capsule 01/21/18 [Rx] Folic Acid 1 mg PO DAILY #30 tablet 01/21/18 [Rx] Metoprolol [Lopressor] 25 mg PO BID 30 Days tablet 01/21/18 [Rx] Multivit/Ca/Min/Fe/FA [Thera M Plus] 1 tab PO DAILY #30 tablet 01/21/18 [Rx] Thiamine (B-1) [Vitamin B-1] 100 mg PO DAILY #30 tablet 01/21/18 [Rx] amLODIPine [Norvasc] 5 mg PO DAILY #30 tablet 01/21/18 [Rx] 3 Allergy/AdvReac Type Severity Reaction Status Date / Time No Known Allergies Allergy Verified 01/19/18 13:25 All Systems PM: A 10-system review of systems was performed and is negative for pertinent findings except as documented above in the HPI. Review of systems: As per HPI - Constitutional Vitals: Temp Pulse Resp BP Pulse Ox 98.4 F 105 20 142/103 97 01/23/18 16:33 01/23/18 18:07 01/23/18 18:07 01/23/18 18:07 01/23/18 18:07 Exam: Gen: NAD HEENT: NC/AT, MMM CVS: tachycardic, no m/r/g Lungs: CTAB Abd: soft, NT, ND Ext: left foot is erythematous and tender to touch with edema. No open ulcerations, no purulent drainage noted. Internal Med - H&P Results - Labs CBC & Chem 7: 01/23/18 16:48 01/23/18 16:48 Labs: Short CBC 01/23/18 Range/Units 16:48 WBC 9.5 (4.3-11.1) K/mcL Hgb 14.9 (12.9-16.9) g/dL Hct 42.1 (37.5-50.1) % Plt Count 238 (140-400) K/mcL Neutrophils # 6.9 (1.6-8.9) K/mcL BMP 01/23/18 16:48 Sodium 133 L Potassium 4.0 Chloride 96 L Carbon Dioxide 27 BUN 10 Creatinine 1.05 Glucose 156 H Calcium 9.6 Cardiac Enzymes 01/23/18 Range/Units 16:48 Troponin I < 0.03 (< 0.04) ng/mL - Impressions ITS Impressions Chest X-Ray 01/23/18 16:38 IMPRESSION: 1. No acute disease. 2. Stable cardiomegaly. D/ / Shay Briceño / Shay Briceño Interpreting Provider: Shay Briceño - Assessment and plan (1) Chest pain Current Visit: Yes Status: Acute Assessment and plan: Atypical chest pain that is bilateral. Initial troponin is negative, EKG shows atrial fibrillation with RVR but not able to appreciate ST/T wave changes. Chest x-ray was unremarkable. Lower suspicion for cardiac, pulmonary/PE cause. Pain currently non-reproducible though this does seem that this is musculoskelatal in nature given that it is bilateral pain, patient points to more of thoracic region of pain upon further discussion with him. He was evaluated by Cardiology 4 days ago during admission. Echocardiogram showed LVEF of 40-45%. Currently he is in no acute distress. Will continue to cycle cardiac enzymes and monitor on telemetry. Qualifiers: Chest pain type: unspecified Qualified Code(s): R07.9 - Chest pain, unspecified (2) Cellulitis Current Visit: Yes Status: Acute Assessment and plan: Left foot. Symptoms are now worsening. He was discharged with Keflex but has not completed 10 day course. Unsure if this is true treatment failure, or from poor living situation and medical non-compliance. Podiatry was consulted on admission 3 days ago and there was discussion for further imaging. Does not appear septic. Currently he is afebrile without any leukocytosis, but pain is more severe. Since symptoms are worsening, will obtain MRI foot. Consult Podiatry, continue Vanc/Zosyn. Qualifiers: Site of cellulitis: extremity Site of cellulitis of extremity: lower extremity Laterality: left Qualified Code(s): L03.116 - Cellulitis of left lower limb (3) Atrial fibrillation with RVR Current Visit: Yes Status: Acute Assessment and plan: Likely this is from non-compliance with metoprolol. He was started on Cardizem drip in ED and HR improved from 140s to 110s. Will DC Cardizem drip and transition him to metoprolol PO with IV metoprolol prn. He is poor anticoagulation candidate because of severe alcohol abuse and also non-compliance. (4) Alcohol abuse Current Visit: Yes Status: Acute Assessment and plan: Patient states his last drink was 4-5 days ago. Will continue CIWA protocol. B12/Thiamine supplementation. (5) CAD (coronary artery disease) Current Visit: Yes Status: Acute Assessment and plan: Resume aspirin Qualifiers: Coronary Disease-Associated Artery/Lesion type: [place] artery [place] vs. transplanted heart: [place] heart Associated angina: angina presence unspecified Qualified Code(s): I25.10 - Atherosclerotic heart disease of [place] coronary artery without angina pectoris (6) Hypertension Current Visit: No Status: Chronic Assessment and plan: Resume home medications. Qualifiers: Hypertension type: essential hypertension Qualified Code(s): I10 - Essential (primary) hypertension (7) Heart failure with reduced ejection fraction Current Visit: No Status: Resolved Assessment and plan: Resume beta kadeem metoprolol Resume ANDIE inhibitor lisinopril. Qualifiers: Heart failure chronicity: acute Qualified Code(s): I50.21 - Acute systolic (congestive) heart failure (8) DVT prophylaxis Current Visit: No Status: Acute Assessment and plan: Heparin SQ - Time Spent With Patient Total time spent is greater than 50% in coordination of care (as documented) at patient's floor/unit and/or counseling patient:
[2018-01-23] MEDS ORDERED: *HR* Metoprolol 5 MG/5 ML VIAL IVP PRN (18:41)
[2018-01-23] MEDS ORDERED: *HR* Metoprolol 5 MG/5 ML VIAL IVP ONE (18:41)
[2018-01-23] MEDS ORDERED: amLODIPine 5 MG TABLET PO ONE (18:42)
[2018-01-23] MEDS ORDERED: Lisinopril-HCTZ 20-12.5mg TABLET PO SCH (21:00)
[2018-01-24] MEDS: Piperacillin/Tazobactam 3.375 GM in 0.9 % Sodium Chloride Mini Bag 100 ML IVPB SCH ×3 (00:42→15:47)
[2018-01-24] MEDS: *HR* Heparin 5,000 UNIT/ML VIAL SQ SCH ×2 (05:09→17:33)
[2018-01-24 06:39] LABS: Basophils % 0.7 %; Eosinophils # 0.2 K/mcL (0.0-0.6); Eosinophils % 3.1 %; Hematocrit 37.9 % (37.5-50.1); Immature Granulocytes % 0.2 % (0-4); Lymphocytes # 1.3 K/mcL (0.6-4.6); Lymphocytes % 23.1 %; Mean Corpuscular HGB Conc 33.8 g/dL (31.6-35.5); Mean Corpuscular Hemoglobin 33.4 pg (28.0-33.3); Mean Platelet Volume 9.2 fL (9.4-12.4); Monocytes # 0.6 K/mcL (0.0-1.3); Monocytes % 10.8 %; Neutrophils # 3.5 K/mcL (1.6-8.9); Platelet Count 192 K/mcL (140-400); Red Blood Count 3.83 M/mcL (4.19-5.50); Red Cell Distribution Width 14.1 % (11.5-14.5); Segmented Neutrophils % 62.1 %
[2018-01-24 06:40] LABS: Hemoglobin 12.8 g/dL (12.9-16.9)
[2018-01-24 06:56] LABS: BUN/Creatinine Ratio 9 (6-26); Blood Urea Nitrogen 8 mg/dL (8-23); Calcium 8.8 mg/dL (8.6-10.3); Carbon Dioxide 25 mEq/L (23-29); Chloride 111 mEq/L (98-107); Glucose 117 mg/dL (70-105); Osmolality,Calculated 281 (280-300); Potassium 3.6 mEq/L (3.5-5.1); Sodium 136 mEq/L (136-145); eGFR For Non-African Americans > 60 (> 60)
[2018-01-24] MEDS: Aspirin 81 MG TAB.CHEW PO SCH ×2 (08:39→08:40)
[2018-01-24] MEDS: Multivit/Ca/Min/Fe/FA 1 TAB TABLET PO SCH (08:39)
[2018-01-24] MEDS: Folic Acid 1 MG TABLET PO SCH (08:39)
[2018-01-24] MEDS: Thiamine (B-1) 100 MG TABLET PO SCH (08:40)
[2018-01-24] MEDS ORDERED: amLODIPine 5 MG TABLET PO SCH (09:00)
--- NOTE | 2018-01-24 11:30 | Internal Med Progress Note ---
Hospitalist Progress Note - Encounter Date of Encounter: 01/24/18 Time of Encounter: 11:30 - Subjective Interval History: Mr Zapata is currently admitted for chest pain and L foot pain and swelling. He remains moderate to high risk due to potential for worsening clinical status. Mr Zapata has been readmitted due to chest pain and worsening L foot pain and swelling. He states he did take abx when he left. He is concerned about his BP meds. He doesn't understand why Clonidine was stopped (after taking it 16 years). I explained the risk of rebound HTN and possible stoke if he does not take it for any reason. He does not have CP or SOB at this time but his foot is painful. He just returned from MRI. He denies swelling above the ankle. He also relayed issues with home. He stated his has dementia and for the last 2 years has "been in [place]." He also has a "druggy" daughter and friend living in his house and he needs them to be "evicted." Current BP is 150/102. - Exam Vitals: Temp Pulse Resp BP Pulse Ox 97.9 F 86 15 149/97 96 01/24/18 06:49 01/24/18 06:49 01/24/18 06:49 01/24/18 06:49 01/24/18 06:49 Exam: General: Alert and oriented. Comfortable. Talkative and pleasant. Skin: Normal color, no rash, no lesions. Head: Normocephalic and atraumatic EENT: EOMI, pupils equal, round and reactive. Mucus membranes moist. No lesion. Cardiovascular: Normal S1 & S2, no rubs, murmurs or gallops. No JVD. Pulse irregular. Lungs: Normal breath sounds, no wheezes or crackles. Abdomen: Soft, non-tender, no rigidity. Normal bowel sounds. Extremities: RLE essentially normal. LLE with edema (nonpitting) from ankle to toes. Erythema across top of foot with warmth. Painful to touch and move. Neurological: Normal cognition and motor skills. Pulses: Carotid and radial pulses normal +2. Rest of the physical exam is non contributory - Assessment and Plan (1) Cellulitis Current Visit: Yes Status: Acute Assessment and Plan: L foot with increased edema and erythema. MRI done this AM and is pending. Will check venous duplex of that leg. Continue IV abx. Podiatry to see. (2) Hypertension Current Visit: No Status: Chronic Assessment and Plan: Uncontrolled at this time. Will continue to keep him off Clonidine and will increase Norvasc to 10mg daily and follow BP. (3) Heart failure with reduced ejection fraction Current Visit: No Status: Chronic Assessment and Plan: Chronic systolic heart failure - no symptoms at this time. Currently on Metoprolol and Lisinopril No changes. (4) Chest pain Current Visit: Yes Status: Resolved Assessment and Plan: Chest pain appears to be more musculoskeletal. Troponin negative. Supportive care. Pt not candidate for C due to prior hx of noncompliance and ETOH. Was to follow as outpatient with cardiology. (5) Alcohol abuse Current Visit: Yes Status: Chronic Assessment and Plan: Reports cessation at this time. Monitoring for withdrawal. (6) CAD (coronary artery disease) Current Visit: Yes Status: Chronic Assessment and Plan: Chronic issue (7) Atrial fibrillation Current Visit: No Status: Chronic Assessment and Plan: Rate controlled at this time. Continue metoprolol DVT Prophylaxis: Subqu heparin - Time Spent with Patient Total time spent is greater than 50% in coordination of care (as documented) at patient's floor/unit and/or counseling patient: Internal Medicine: Result - Labs CBC & Chem 7: 01/24/18 06:06 01/24/18 06:06 Labs: Short CBC 01/24/18 Range/Units 06:06 WBC 5.6 (4.3-11.1) K/mcL Hgb 12.8 L D (12.9-16.9) g/dL Hct 37.9 (37.5-50.1) % Plt Count 192 (140-400) K/mcL Neutrophils # 3.5 (1.6-8.9) K/mcL BMP 01/24/18 06:06 Sodium 136 Potassium 3.6 Chloride 111 H Carbon Dioxide 25 BUN 8 Creatinine 0.89 Glucose 117 H Calcium 8.8 Cardiac Enzymes 01/23/18 Range/Units 23:07 Troponin I < 0.03 (< 0.04) ng/mL - ABG Interpretation ABG results: PT/INR, D-dimer PT 12.1 Seconds (9.4-12.1) 01/23/18 16:38 Consult Discharge Plan - Plan Referrals: NONE,PCP [Primary Care Provider] - (1) Cellulitis Qualifiers: Site of cellulitis: extremity Site of cellulitis of extremity: lower extremity Laterality: left Qualified Code(s): L03.116 - Cellulitis of left lower limb (2) Hypertension Qualifiers: Hypertension type: essential hypertension Qualified Code(s): I10 - Essential (primary) hypertension (3) Heart failure with reduced ejection fraction Qualifiers: Heart failure chronicity: chronic Qualified Code(s): I50.22 - Chronic systolic (congestive) heart failure (4) Chest pain Qualifiers: Chest pain type: other chest pain Qualified Code(s): R07.89 - Other chest pain; R07.8 - Other chest pain (6) CAD (coronary artery disease) Qualifiers: Coronary Disease-Associated Artery/Lesion type: [place] artery [place] vs. transplanted heart: [place] heart Associated angina: angina presence unspecified Qualified Code(s): I25.10 - Atherosclerotic heart disease of [place] coronary artery without angina pectoris (7) Atrial fibrillation Qualifiers: Atrial fibrillation type: chronic Qualified Code(s): I48.2 - Chronic atrial fibrillation
[2018-01-24] MEDS: Lisinopril-HCTZ 20-12.5mg TABLET PO SCH (22:02)
[2018-01-25] MEDS: Piperacillin/Tazobactam 3.375 GM in 0.9 % Sodium Chloride Mini Bag 100 ML IVPB SCH ×4 (01:18→23:46)
[2018-01-25 04:08] LABS: Hematocrit 38.4 % (37.5-50.1); Hemoglobin 13.1 g/dL (12.9-16.9); Mean Corpuscular HGB Conc 34.1 g/dL (31.6-35.5); Mean Corpuscular Hemoglobin 33.8 pg (28.0-33.3); Mean Platelet Volume 9.5 fL (9.4-12.4); Platelet Count 210 K/mcL (140-400); Red Blood Count 3.88 M/mcL (4.19-5.50); Red Cell Distribution Width 13.8 % (11.5-14.5)
[2018-01-25 04:28] LABS: BUN/Creatinine Ratio 16 (6-26); Blood Urea Nitrogen 14 mg/dL (8-23); Carbon Dioxide 25 mEq/L (23-29); Chloride 103 mEq/L (98-107); Glucose 103 mg/dL (70-105); Osmolality,Calculated 283 (280-300); Potassium 3.5 mEq/L (3.5-5.1); Sodium 136 mEq/L (136-145); eGFR For Non-African Americans > 60 (> 60)
[2018-01-25] MEDS: *HR* Heparin 5,000 UNIT/ML VIAL SQ SCH ×2 (05:12→18:26)
[2018-01-25] MEDS ORDERED: CloNIDine Patch 0.1 MG PATCH (WEEKLY) TD SCH (08:30)
[2018-01-25] MEDS: Thiamine (B-1) 100 MG TABLET PO SCH (09:02)
[2018-01-25] MEDS: cloNIDine HCl 0.1 MG TABLET PO SCH ×2 (09:03→20:23)
[2018-01-25] MEDS: Lisinopril-HCTZ 20-12.5mg TABLET PO SCH ×2 (09:04→20:23)
[2018-01-25] MEDS: amLODIPine 5 MG TABLET PO SCH (09:04)
[2018-01-25] MEDS: Multivit/Ca/Min/Fe/FA 1 TAB TABLET PO SCH (09:04)
[2018-01-25] MEDS: Folic Acid 1 MG TABLET PO SCH (09:04)
[2018-01-25] MEDS: Aspirin 81 MG TAB.CHEW PO SCH (09:09)
--- NOTE | 2018-01-25 09:16 | Internal Med Progress Note ---
Hospitalist Progress Note - Encounter Date of Encounter: 01/25/18 Time of Encounter: 09:13 - Subjective Interval History: Mr Zapata is currently admitted for chest pain and L foot pain and swelling. He remains moderate to high risk due to potential for worsening clinical status. Mr Zapata feels OK at this time. BP and heart rate still elevated some. No DVT noted yesterday and no abscess on MRI. He feels foot is improving with IV abx. Appetite is OK. No CP or SOB. No GI issues at this time. - Exam Vitals: Temp Pulse Resp BP Pulse Ox 97.7 F 92 15 149/101 97 01/25/18 06:18 18 06:18 01/25/18 06:18 01/25/18 06:18 01/25/18 06:18 Exam: General: Alert and oriented. Comfortable. Talkative and pleasant. Skin: Normal color, no rash, no lesions. Some erythema still present to L foot but less today. Head: Normocephalic and atraumatic EENT: EOMI, pupils equal, round and reactive. Mucus membranes moist. No lesion. Cardiovascular: Normal S1 & S2, no rubs, murmurs or gallops. No JVD. Pulse irregular and slightly tachycardic at this time. Lungs: Normal breath sounds, no wheezes or crackles. Abdomen: Soft, non-tender, no rigidity. Normal bowel sounds. Extremities: RLE essentially normal. LLE edema (nonpitting) from ankle to toes persists today but appears to be less. Erythema across top of foot with warmth appears to be less as well. Painful to touch and move still today. Neurological: Normal cognition and motor skills. Pulses: Carotid and radial pulses normal +2. Rest of the physical exam is non contributory - Assessment and Plan (1) Cellulitis Current Visit: Yes Status: Acute Assessment and Plan: No abscess seen on MRI. No DVT on duplex. Seems to be slowly improving with IV abx. Will continue same abx today and reassess tomorrow. (2) Hypertension Current Visit: No Status: Chronic Assessment and Plan: BP remains uncontrolled. Seemed a little better after increase in Norvasc yesterday but when up again later in day. Will start Clonidine patch q 7 days. Cover with PO Clonidine for the first 2 days until patch is in his system enough. (3) Heart failure with reduced ejection fraction Current Visit: No Status: Chronic Assessment and Plan: Chronic systolic heart failure - no symptoms at this time. Currently on Metoprolol and Lisinopril No changes. (4) Chest pain Current Visit: Yes Status: Resolved Assessment and Plan: Chest pain appears to be more musculoskeletal. Troponin negative. Supportive care. Pt not candidate for C due to prior hx of noncompliance and ETOH. Was to follow as outpatient with cardiology. No symptoms at all today. (5) Alcohol abuse Current Visit: Yes Status: Chronic Assessment and Plan: Reports cessation at this time. Monitoring for withdrawal. (6) CAD (coronary artery disease) Current Visit: Yes Status: Chronic Assessment and Plan: Chronic issue (7) Atrial fibrillation Current Visit: No Status: Chronic Assessment and Plan: Rate a little higher this AM but just receiving meds. Monitoring. DVT Prophylaxis: Subqu heparin - Time Spent with Patient Total time spent is greater than 50% in coordination of care (as documented) at patient's floor/unit and/or counseling patient: Internal Medicine: Result - Labs CBC & Chem 7: 01/25/18 03:08 01/25/18 03:08 Labs: Short CBC 01/25/18 Range/Units 03:08 WBC 8.0 (4.3-11.1) K/mcL Hgb 13.1 (12.9-16.9) g/dL Hct 38.4 (37.5-50.1) % Plt Count 210 (140-400) K/mcL BMP 01/25/18 03:08 Sodium 136 Potassium 3.5 Chloride 103 Carbon Dioxide 25 BUN 14 Creatinine 0.85 Glucose 103 Calcium 9.0 - ABG Interpretation ABG results: PT/INR, D-dimer PT 12.1 Seconds (9.4-12.1) 01/23/18 16:38 Consult Discharge Plan - Plan Referrals: NONE,PCP [Primary Care Provider] - (1) Cellulitis Qualifiers: Site of cellulitis: extremity Site of cellulitis of extremity: lower extremity Laterality: left Qualified Code(s): L03.116 - Cellulitis of left lower limb (2) Hypertension Qualifiers: Hypertension type: essential hypertension Qualified Code(s): I10 - Essential (primary) hypertension (3) Heart failure with reduced ejection fraction Qualifiers: Heart failure chronicity: chronic Qualified Code(s): I50.22 - Chronic systolic (congestive) heart failure (4) Chest pain Qualifiers: Chest pain type: other chest pain Qualified Code(s): R07.89 - Other chest pain; R07.8 - Other chest pain (6) CAD (coronary artery disease) Qualifiers: Coronary Disease-Associated Artery/Lesion type: [place] artery [place] vs. transplanted heart: [place] heart Associated angina: without angina Qualified Code(s): I25.10 - Atherosclerotic heart disease of [place] coronary artery without angina pectoris (7) Atrial fibrillation Qualifiers: Atrial fibrillation type: chronic Qualified Code(s): I48.2 - Chronic atrial fibrillation
[2018-01-26] MEDS: *HR* Heparin 5,000 UNIT/ML VIAL SQ SCH ×2 (05:52→16:57)
--- NOTE | 2018-01-26 07:24 | Internal Med Progress Note ---
<Kassidy Bryant N - Last Filed: 01/26/18 10:16> Hospitalist Progress Note - Encounter Date of Encounter: 01/26/18 Time of Encounter: 07:24 - Subjective Interval History: Mr. Zapata presented to the ED over the weekend complaining of worsening left foot pain and chest discomfort. He was discharged from the hospital a few days prior to this admission, at which time he was prescribed several antihypertensive agents and keflex x 10 days for left foot cellulitis. Patient states that he was unable to get any of his medications after he was discharged from the hospital. He states that he was restarted on his usual BP regimen of clonidine, lisinopril-HCTZ, and metoprolol. He reports that his foot is feeling better today, but he reports continued discomfort while walking. - Exam Vitals: Temp Pulse Resp BP Pulse Ox 98.4 F 87 15 133/78 92 01/26/18 04:50 01/26/18 04:50 01/26/18 04:50 01/26/18 04:50 01/26/18 04:50 Exam: * General: Pleasant elderly male in no acute distress. He is pleasant and conversational and answers questions appropriately. * HEENT: Atraumatic and normocephalic. * Cardiovascular: Irregular rate and rhythm. HR ~80-100bpm. S1 and S2 present. No murmurs, rubs, or gallops. * Respiratory: Clear bilaterally. Chest rises and falls symmetrically. * Gastrointestinal: Active bowel sounds x 4 quadrants. Abdomen is soft and nontender. * Extremities: No clubbing, cyanosis, or edema. Dorsal surface of left foot is warm and erythematous with tenderness to palpation. - Assessment and Plan (1) Cellulitis Current Visit: Yes Status: Acute Assessment and Plan: Patient was discharged from the hospital on 01/21/2018 with a prescription for keflex x 10 days; however, patient states that he was unable to get that medication filled and did not take it. He is currently on IV vancomycin and zosyn, and reports improved redness and tenderness in the left foot. Podiatry consultation pending. Plan to continue current antibiotic regimen with futher adjustments per podiatry recommendations. Will discuss with social work prior to discharge to make sure patient is enrolled an any programs he is eligible for that might help him get his prescriptions; otherwise, suspect that he will again be non-compliant after discharge, resulting in worsening infection. (2) Hypertension Current Visit: No Status: Chronic Assessment and Plan: Patient is currently taking amlodipine 10mg, metoprolol 25mg BID, lisinopril- HCTZ 25-12.5mg, and clonidine 0.1mg BID. He has been started on clonidine patch , with discontinuation of PO clonidine planned after his evening dose today. His BP is under better control; however, he is not currently at goal, as morning BP was elevated at 149/87. Will continue current regimen with further alterations as necessary. (3) Atrial fibrillation Current Visit: No Status: Inactive Assessment and Plan: HR currently ~80-100bpm with irregular rate and rhythm. Will continue to monitor. (4) Heart failure with reduced ejection fraction Current Visit: No Status: Chronic Assessment and Plan: Recently diagnosed during his last hospitalization. He is currently asymptomatic. Plan for outpatient cardiology followup for further evaluation and management. (5) Alcohol abuse Current Visit: Yes Status: Chronic Assessment and Plan: History of heavy alcohol abuse. Currently on CIWA protocol; He did not display signs of withdrawal during his last hospitalization. Will continue to monitor. - Time Spent with Patient Total time spent is greater than 50% in coordination of care (as documented) at patient's floor/unit and/or counseling patient: Internal Medicine: Result - Labs CBC & Chem 7: 01/26/18 09:27 01/26/18 09:27 - ABG Interpretation ABG results: PT/INR, D-dimer PT 12.1 Seconds (9.4-12.1) 01/23/18 16:38 Consult Discharge Plan - Plan Referrals: NONE,PCP [Primary Care Provider] - <Jose G Devine - Last Filed: 01/26/18 16:46> Hospitalist Progress Note - Encounter Date of Encounter: 01/26/18 - Exam Vitals: Temp Pulse Resp BP Pulse Ox 98.7 F 84 16 108/73 99 01/26/18 15:25 01/26/18 15:25 01/26/18 15:25 01/26/18 15:25 01/26/18 15:25 - Assessment and Plan (1) Atrial fibrillation Current Visit: No Status: Inactive (2) Hypertension Current Visit: No Status: Chronic (3) Heart failure with reduced ejection fraction Current Visit: No Status: Chronic (4) Cellulitis Current Visit: Yes Status: Acute (5) Alcohol abuse Current Visit: Yes Status: Chronic - Time Spent with Patient Total time spent is greater than 50% in coordination of care (as documented) at patient's floor/unit and/or counseling patient: Internal Medicine: Result - Labs CBC & Chem 7: 01/26/18 09:27 01/26/18 09:27 Labs: Short CBC 01/26/18 Range/Units 09:27 WBC 8.1 (4.3-11.1) K/mcL Hgb 14.7 D (12.9-16.9) g/dL Hct 41.5 (37.5-50.1) % Plt Count 232 (140-400) K/mcL Neutrophils # 5.9 (1.6-8.9) K/mcL BMP 01/26/18 09:27 Sodium 135 L Potassium 3.4 L Chloride 99 Carbon Dioxide 30 H BUN 14 Creatinine 0.87 Glucose 157 H Calcium 9.3 - ABG Interpretation ABG results: PT/INR, D-dimer PT 12.1 Seconds (9.4-12.1) 01/23/18 16:38 - Attending Attestation I examined this patient and my medical decision-making was reviewed with the Resident Physician on 01/26/18. I agree with the documented findings, disposition and treatment plan as described except to the extent set forth below. Mr Zapata is currently admitted for L foot cellulitis and atrial fibrillation. He remains moderate to high risk due to potential for worsening clinical status. Mr Zapata is doing better with his BP. He feels his foot may be improving. No fever or chills. BP better controlled and heart rate is controlled. Exam alert Comfortable Mucus membranes dry Heart irreg - not tachy No wheeze Abd soft L foot less swollen and red I/P 1. L foot cellulitis - appreciate podiatry input. Will continue IV abx for now 2. HTN - improved on Catapres patch 3. A fib Further diagnoses and plan as above. <Kassidy Bryant N - Last Filed: 01/26/18 10:16> (1) Cellulitis Qualifiers: Site of cellulitis: extremity Site of cellulitis of extremity: lower extremity Laterality: left Qualified Code(s): L03.116 - Cellulitis of left lower limb (2) Hypertension Qualifiers: Hypertension type: essential hypertension Qualified Code(s): I10 - Essential (primary) hypertension (3) Atrial fibrillation Qualifiers: Atrial fibrillation type: chronic Qualified Code(s): I48.2 - Chronic atrial fibrillation (4) Heart failure with reduced ejection fraction Qualifiers: Heart failure chronicity: chronic Qualified Code(s): I50.22 - Chronic systolic (congestive) heart failure <Jose G Devine A - Last Filed: 01/26/18 16:46> (1) Atrial fibrillation Qualifiers: Atrial fibrillation type: chronic Qualified Code(s): I48.2 - Chronic atrial fibrillation (2) Hypertension Qualifiers: Hypertension type: essential hypertension Qualified Code(s): I10 - Essential (primary) hypertension (3) Heart failure with reduced ejection fraction Qualifiers: Heart failure chronicity: chronic Qualified Code(s): I50.22 - Chronic systolic (congestive) heart failure (4) Cellulitis Qualifiers: Site of cellulitis: extremity Site of cellulitis of extremity: lower extremity Laterality: left Qualified Code(s): L03.116 - Cellulitis of left lower limb
[2018-01-26] MEDS: amLODIPine 5 MG TABLET PO SCH (09:17)
[2018-01-26] MEDS: Aspirin 81 MG TAB.CHEW PO SCH (09:17)
[2018-01-26] MEDS: Thiamine (B-1) 100 MG TABLET PO SCH (09:17)
[2018-01-26] MEDS: cloNIDine HCl 0.1 MG TABLET PO SCH ×2 (09:17→22:08)
[2018-01-26] MEDS: Folic Acid 1 MG TABLET PO SCH (09:17)
[2018-01-26] MEDS: Multivit/Ca/Min/Fe/FA 1 TAB TABLET PO SCH (09:17)
[2018-01-26] MEDS: Lisinopril-HCTZ 20-12.5mg TABLET PO SCH ×2 (09:17→22:07)
[2018-01-26] MEDS: Piperacillin/Tazobactam 3.375 GM in 0.9 % Sodium Chloride Mini Bag 100 ML IVPB SCH ×2 (09:18→16:57)
[2018-01-26 09:43] LABS: Basophils % 0.4 %; Eosinophils # 0.1 K/mcL (0.0-0.6); Eosinophils % 1.6 %; Hematocrit 41.5 % (37.5-50.1); Immature Granulocytes % 0.4 % (0-4); Lymphocytes # 1.4 K/mcL (0.6-4.6); Lymphocytes % 16.9 %; Mean Corpuscular HGB Conc 35.4 g/dL (31.6-35.5); Mean Corpuscular Hemoglobin 34.6 pg (28.0-33.3); Mean Corpuscular Volume 97.6 fL (83.0-100.0); Mean Platelet Volume 9.2 fL (9.4-12.4); Monocytes # 0.6 K/mcL (0.0-1.3); Monocytes % 7.5 %; Neutrophils # 5.9 K/mcL (1.6-8.9); Platelet Count 232 K/mcL (140-400); Red Blood Count 4.25 M/mcL (4.19-5.50); Red Cell Distribution Width 13.3 % (11.5-14.5); Segmented Neutrophils % 73.2 %
[2018-01-26 09:52] LABS: Hemoglobin 14.7 g/dL (12.9-16.9)
[2018-01-26 10:03] LABS: BUN/Creatinine Ratio 16 (6-26); Blood Urea Nitrogen 14 mg/dL (8-23); Calcium 9.3 mg/dL (8.6-10.3); Carbon Dioxide 30 mEq/L (23-29); Chloride 99 mEq/L (98-107); Glucose 157 mg/dL (70-105); Osmolality,Calculated 284 (280-300); Potassium 3.4 mEq/L (3.5-5.1); Sodium 135 mEq/L (136-145); eGFR For Non-African Americans > 60 (> 60)
--- NOTE | 2018-01-26 12:57 | Podiatry Consult Note ---
Date of Encounter: 01/26/18 Time of Encounter: 12:20 Assessment and Plan (1) Cellulitis Current visit: Yes Status: Acute 72-year-old male with A. fib and recurrent cellulitis dorsal left foot Reviewed with patient his history, my findings and recommendations for treatment. We discussed the erythema on the dorsal foot which appears to be nearly resolved at this point. We also discussed the pain and symptoms he was having previously but they have improved since he has been on the IV antibiotics. Left foot is not red hot and swollen as would be a typical gout situation that would likely not respond to IV antibiotics. Symptomatically he is improving on IV antibiotics at they have more of a cellulitis the likely worsened as he was not compliant with his oral medications and outpatient. Discussed and Porten's of compliance with him and his family bedside regarding the antibiotic. Would recommend that he receive IV antibiotics for [id number] hours and then discharge on oral antibiotics Augmentin 500mg TID and Doxycycline 100mg BID for 10 days and follow up with me as an outpatient in 1 week. Qualifiers: Site of cellulitis: extremity Site of cellulitis of extremity: lower extremity Laterality: left Qualified Code(s): L03.116 - Cellulitis of left lower limb History of Present Illness HPI: Mr. Zapata is a 72 year old male who is an alcoholic and comes in with recurrent erythema of the left foot. He had been discharged previously on oral Keflex. He says he does not know if he took the antibiotic after he left the hospital last time. He says he will make sure he takes it this time. He has had a CT and MRI done which are negative for abscess. He says the pain in his foot is better since he has been here as previously he could not walk on his left foot but now he can get up and walk on it. He also says his heart is doing better. He denies f/c/n/v. Denies a h/o of gout. Uric acid checked and previously wnl. Past Med Surg Social Fam HX - Past Medical History Medical history: atrial fibrillation, hypertension Additional medical history: heavy alcohol use Psychiatric history: no psych history - Past Surgical History Surgical History: angioplasty/stent Additional surgical history: stent x1 - Social History Smoking Status: Former smoker Smokeless Tobacco Status: No Alcohol use: heavy Drug use: none Medications and Allergies Lisinopril/Hydrochlorothiazide [Zestoretic 20-12.5 mg Tablet] 1 tab PO BID 01/19 [History] Aspirin 81 mg PO DAILY tab.chew 01/21/18 [Rx] Cephalexin [Keflex] 500 mg PO Q6H 10 Days capsule 01/21/18 [Rx] Folic Acid 1 mg PO DAILY #30 tablet 01/21/18 [Rx] Metoprolol [Lopressor] 25 mg PO BID 30 Days tablet 01/21/18 [Rx] Multivit/Ca/Min/Fe/FA [Thera M Plus] 1 tab PO DAILY #30 tablet 01/21/18 [Rx] Thiamine (B-1) [Vitamin B-1] 100 mg PO DAILY #30 tablet 01/21/18 [Rx] amLODIPine [Norvasc] 5 mg PO DAILY #30 tablet 01/21/18 [Rx] 3 Allergy/AdvReac Type Severity Reaction Status Date / Time No Known Allergies Allergy Verified 01/19/18 13:25 All Systems Reviewed: The remainder of the systems were reviewed and are negative - Constitutional Constitutional: no fever(s) - Cardiovascular Cardiovascular: irregular heart rhythm, no dyspnea - Respiratory Respiratory: no cough - Musculoskeletal Musculoskeletal: joint swelling Physical Exam - Constitutional Vitals: Temp Pulse Resp BP Pulse Ox 98.3 F 80 18 101/74 98 01/26/18 10:56 01/26/18 10:56 01/26/18 10:56 01/26/18 10:56 01/26/18 10:56 General appearance: average body habitus, no acute distress - Ankle & Foot Exam: Well-developed and nourished male in no acute distress Capillary refill time less than 3 seconds 5 digits left foot. Left foot is warm to touch. Very mild edema to the left foot. Resolving erythema dorsal aspect of foot. No open lesion. No areas of fluctuance. No pain with palpation dorsal foot or with movement and stress of the MTP midfoot, ST J and ankle joints. Sensation intact to touch. Results - Labs Result Diagrams: 01/26/18 09:27 01/26/18 09:27 Labs: Abnormal lab results MCH 34.6 pg (28.0-33.3) H 01/26/18 09:27 MPV 9.2 fL (9.4-12.4) L 01/26/18 09:27 Sodium 135 mEq/L (136-145) L 01/26/18 09:27 Potassium 3.4 mEq/L (3.5-5.1) L 01/26/18 09:27 Carbon Dioxide 30 mEq/L (23-29) H 01/26/18 09:27 Glucose 157 mg/dL (70-105) H 01/26/18 09:27 Vancomycin Trough 14 mcg/mL (5-10) H 01/25/18 03:08 Salicylates < 2.5 mg/dL (15.0-30.0) L 01/23/18 16:48 Acetaminophen < 10 mcg/mL (10-20) L 01/23/18 16:48 H & H 01/26/18 Range/Units 09:27 Hgb 14.7 D (12.9-16.9) g/dL Hct 41.5 (37.5-50.1) % All other labs normal. Consult Discharge Plan - Plan Referrals: NONE,PCP [Primary Care Provider] -
[2018-01-27] MEDS: Piperacillin/Tazobactam 3.375 GM in 0.9 % Sodium Chloride Mini Bag 100 ML IVPB SCH ×3 (00:38→17:16)
[2018-01-27 01:57] LABS: Basophils % 0.6 %; Eosinophils # 0.2 K/mcL (0.0-0.6); Eosinophils % 2.7 %; Hematocrit 36.4 % (37.5-50.1); Immature Granulocytes % 0.1 % (0-4); Lymphocytes # 1.3 K/mcL (0.6-4.6); Lymphocytes % 19.7 %; Mean Corpuscular HGB Conc 34.6 g/dL (31.6-35.5); Mean Corpuscular Hemoglobin 33.9 pg (28.0-33.3); Mean Corpuscular Volume 97.8 fL (83.0-100.0); Mean Platelet Volume 9.3 fL (9.4-12.4); Monocytes # 0.7 K/mcL (0.0-1.3); Monocytes % 9.9 %; Neutrophils # 4.5 K/mcL (1.6-8.9); Platelet Count 232 K/mcL (140-400); Red Blood Count 3.72 M/mcL (4.19-5.50); Red Cell Distribution Width 13.4 % (11.5-14.5)
[2018-01-27 02:02] LABS: Hemoglobin 12.6 g/dL (12.9-16.9)
[2018-01-27 02:21] LABS: BUN/Creatinine Ratio 22 (6-26); Blood Urea Nitrogen 19 mg/dL (8-23); Calcium 9.1 mg/dL (8.6-10.3); Carbon Dioxide 27 mEq/L (23-29); Chloride 101 mEq/L (98-107); Glucose 106 mg/dL (70-105); Osmolality,Calculated 283 (280-300); Potassium 3.7 mEq/L (3.5-5.1); Sodium 135 mEq/L (136-145); eGFR For Non-African Americans > 60 (> 60)
[2018-01-27] MEDS: *HR* Heparin 5,000 UNIT/ML VIAL SQ SCH ×2 (05:28→17:18)
[2018-01-27] MEDS: Lisinopril-HCTZ 20-12.5mg TABLET PO SCH ×2 (08:10→20:56)
[2018-01-27] MEDS: Thiamine (B-1) 100 MG TABLET PO SCH (08:10)
[2018-01-27] MEDS: Folic Acid 1 MG TABLET PO SCH (08:11)
[2018-01-27] MEDS: Aspirin 81 MG TAB.CHEW PO SCH (08:11)
[2018-01-27] MEDS: Multivit/Ca/Min/Fe/FA 1 TAB TABLET PO SCH (08:11)
[2018-01-27] MEDS: amLODIPine 5 MG TABLET PO SCH (08:11)
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
[2018-01-27] MEDS ORDERED: Aminoglycoside Consult 1 EACH MC ONE (15:23)
--- NOTE | 2018-01-27 21:15 | Electrocardiograph Report ---
[address] [address] Test Date: 2018-01-23 Pat Name: David Zapata Department: EXAM4 Room: [facility] Gender: M [employer]olesale Account Executive: : 1945 Requested By: Calista Roque Order Number: [id number] Reading MD: Sravanthi Gomez Measurements Intervals [place] Rate: 145 P: NE: QRS: 37 QRSD: 93 T: QT: 295 QTc: 459 Interpretive Statements Atrial fibrillation with rapid ventricular response Nonspecific ST-T wave changes Electronically Signed On 01-27-2018 21:14:07 EDT by Sravanthi Gomez
[2018-01-28] MEDS: Piperacillin/Tazobactam 3.375 GM in 0.9 % Sodium Chloride Mini Bag 100 ML IVPB SCH ×2 (00:31→08:08)
[2018-01-28] MEDS: *HR* Heparin 5,000 UNIT/ML VIAL SQ SCH (04:50)
[2018-01-28] MEDS: Folic Acid 1 MG TABLET PO SCH (08:08)
[2018-01-28] MEDS: Thiamine (B-1) 100 MG TABLET PO SCH (08:08)
[2018-01-28] MEDS: Aspirin 81 MG TAB.CHEW PO SCH (08:08)
[2018-01-28] MEDS: Multivit/Ca/Min/Fe/FA 1 TAB TABLET PO SCH (08:08)
[2018-01-28] MEDS: amLODIPine 5 MG TABLET PO SCH (08:08)
[2018-01-28] MEDS: Lisinopril-HCTZ 20-12.5mg TABLET PO SCH (08:08)
--- NOTE | 2018-01-28 08:43 | Discharge Summary ---
<Kassidy Bryant N - Last Filed: 01/28/18 11:28> - NOTES TO OUTPATIENT PROVIDER Notes to Outpatient Provider: Patient had IV antibiotics x 6 days and was d/c with an additional 10 days of antibiotics. He compalined of new-onset left inguinal mass, that was felt to be a reducible inguinal hernia. Date of Encounter: 01/28/18 Time of Encounter: 08:43 - Discharge Diagnosis (1) Cellulitis Priority: Primary Status: Acute Qualifiers: Site of cellulitis: extremity Site of cellulitis of extremity: lower extremity Laterality: left Qualified Code(s): L03.116 - Cellulitis of left lower limb (2) Hypertension Priority: Secondary Status: Chronic Qualifiers: Hypertension type: essential hypertension Qualified Code(s): I10 - Essential (primary) hypertension (3) Atrial fibrillation Priority: Secondary Status: Inactive Qualifiers: Atrial fibrillation type: chronic Qualified Code(s): I48.2 - Chronic atrial fibrillation (4) Heart failure with reduced ejection fraction Priority: Secondary Status: Chronic Qualifiers: Heart failure chronicity: chronic Qualified Code(s): I50.22 - Chronic systolic (congestive) heart failure (5) Alcohol abuse Priority: Secondary Status: Chronic Hospital course: Mr. Zapata presented to the ED over the weekend complaining of worsening left foot pain and chest discomfort. He was discharged from the hospital a few days prior to this admission, at which time he was prescribed several antihypertensive agents and keflex x 10 days for left foot cellulitis. Patient states that he was unable to get any of his medications after he was discharged from the hospital. He states that he was restarted on his usual BP regimen of clonidine, lisinopril-HCTZ, and metoprolol. He reports that his foot is feeling better today, but he reports continued discomfort while walking. He received IV vancomycin and zosyn x6 days. Per podiatry recommendations, patient was discharged with augmentin 500mg TID and doxycycline 100mg BID x 10 days. He is to follow up with podiatry in one week. He was also instructed to continue taking metoprolol 25mg BID, norvasc 10mg, lisinopril-HCTZ 20-12.5, and clonidine 0.1mg patche weekly. He complained of new-onset left inguinal mass that is reducible. It was felt that this is likely a direct inguinal hernia. Patient was instructed to follow up as outpatient with PCP for further management. Discharge discussed with: patient, nurse - Time Spent with Patient Total time spent providing and/or coordinating discharge services: - Discharge Medications Prescriptions: amLODIPine [Norvasc] 10 mg PO DAILY #30 tablet Amoxicillin/Clavulanate [Augmentin] 1 mg PO TID #30 tablet CloNIDine Patch [Catapres-Tts] 0.1 mg TD QWEEK #4 patch.tdwk Doxycycline 100 mg PO BID #20 capsule Lisinopril/Hydrochlorothiazide [Zestoretic 20-12.5 mg Tablet] 1 tab PO BID #60 tablet Metoprolol [Lopressor] 25 mg PO BID #60 tablet Home Medications: Aspirin 81 mg PO DAILY tab.chew 01/21/18 [Rx] Folic Acid 1 mg PO DAILY #30 tablet 01/21/18 [Rx] Multivit/Ca/Min/Fe/FA [Thera M Plus] 1 tab PO DAILY #30 tablet 01/21/18 [Rx] Thiamine (B-1) [Vitamin B-1] 100 mg PO DAILY #30 tablet 01/21/18 [Rx] Amoxicillin/Clavulanate [Augmentin] 1 mg PO TID #30 tablet 01/28/18 [Rx] CloNIDine Patch [Catapres-Tts] 0.1 mg TD QWEEK #4 patch.tdwk 01/28/18 [Rx] Doxycycline 100 mg PO BID #20 capsule 01/28/18 [Rx] Lisinopril/Hydrochlorothiazide [Zestoretic 20-12.5 mg Tablet] 1 tab PO BID #60 tablet 01/28/18 [Rx] Metoprolol [Lopressor] 25 mg PO BID #60 tablet 01/28/18 [Rx] amLODIPine [Norvasc] 10 mg PO DAILY #30 tablet 01/28/18 [Rx] Allergies/Adverse Reactions: 3 Allergy/AdvReac Type Severity Reaction Status Date / Time No Known Allergies Allergy Verified 01/19/18 13:25 Date of admission: 01/23/18 18:44 Primary care physician: PCP NONE Consults: 01/23/18 22:08 Consult to Podiatry [CONS] Routine Consulting Provider: Podiatry [facility] Reason for Consult: Worsening foot cellulitis - possibly non-compliance. Call Completed: No 01/26/18 11:21 Consult to [employer] [CONS] Routine Reason for SW Consult: Housing difficulties and trouble getting prescription rx Discharging clinician: Kassidy Bryant Anticipated date of discharge: 01/28/18 - Constitutional Vitals: Temp Pulse Resp BP Pulse Ox 97.8 F 95 17 152/88 98 01/28/18 07:04 01/28/18 07:04 01/28/18 07:04 01/28/18 07:04 01/28/18 07:04 Exam: * General: Pleasant elderly male in no acute distress. He is pleasant and conversational and answers questions appropriately. * HEENT: Atraumatic and normocephalic. * Cardiovascular: Irregular rate and rhythm. S1 and S2 present. No murmurs, rubs , or gallops. * Respiratory: Clear bilaterally. Chest rises and falls symmetrically. * Gastrointestinal: Abdomen is soft and nontender. * Extremities: No clubbing or cyanosis. Dorsal surface of left foot is minimally warm and erythematous. 1+ pitting edema in left foot. No tenderness to palpation. - Patient Status Disposition: Home, Self-Care Condition: Fair Functional capacity at discharge: independent ambulation Overall status at discharge: patient is progressing back to baseline - Discharge Instructions Instructions: Metoprolol (By mouth), Lisinopril (By mouth), Clonidine (By mouth ), Doxycycline (By mouth), Amoxicillin (By mouth), Amlodipine (By mouth), Cellulitis (DC) Follow Up With: NONE,PCP [Primary Care Provider] - Noel Galo DPM [Partnered Physician] - Additional Instructions: Follow up with your PCP in 3-5 days. Follow up with podiatry in 7 days. Take augmentin 500mg three times daily for 10 days. Take doxycycline 100mg twice daily for 10 days. Take blood pressure medications as prescribed - metoprolol 25mg twice per day, amlodipine 10mg daily, lisinopril-HCTZ 20-12.5mg daily, and clonidine 0.1mg patch weekly. Return to the emergency room if you develop fevers, chills, worsening foot pain , or any other concerns. - Diet and Activity Activity: resume usual activities as tolerated Diet: other (Cardiac diet) <Jayy Bryson - Last Filed: 01/28/18 14:10> Date of Encounter: 01/28/18 Time of Encounter: 08:45 - Discharge Diagnosis (1) Atrial fibrillation Status: Inactive Qualifiers: Atrial fibrillation type: chronic Qualified Code(s): I48.2 - Chronic atrial fibrillation (2) Hypertension Status: Chronic Qualifiers: Hypertension type: essential hypertension Qualified Code(s): I10 - Essential (primary) hypertension (3) Heart failure with reduced ejection fraction Status: Chronic Qualifiers: Heart failure chronicity: chronic Qualified Code(s): I50.22 - Chronic systolic (congestive) heart failure (4) Cellulitis Status: Acute Qualifiers: Site of cellulitis: extremity Site of cellulitis of extremity: lower extremity Laterality: left Qualified Code(s): L03.116 - Cellulitis of left lower limb (5) Alcohol abuse Status: Chronic Hospital course: Mr. Zapata is a 72 year old male - Time Spent with Patient Total time spent providing and/or coordinating discharge services: Date of admission: 01/27/18 08:00 Primary care physician: PCP NONE - Constitutional Vitals: Temp Pulse Resp BP Pulse Ox 97.9 F 62 18 106/70 94 01/28/18 11:10 01/28/18 11:10 01/28/18 11:10 01/28/18 11:10 01/28/18 11:10 Exam: General: Patient is alert, no acute distress, oriented x 3 Skin: Erythema in left foot improving. Pedal edema present in the left foot. Nontender to palpation. Neuro: Alert oriented x 3 normal cranial nerves, no focal deficits - Attending Attestation I saw evaluated and examined this patient and my medical decision-making was reviewed with the Resident Physician, Kassidy Bryant. I agree with the documented findings, disposition and treatment plan as described except to any changes set forth below. We independently had [id number] contact with the patient. 72-year-old male patient was hospitalized here with cellulitis involving both his feet but mainly on the left. He was treated with IV antibiotics and then evaluated by podiatry. Per podiatry recommendations, patient will be discharged today on Augmentin and doxycycline. He did receive vancomycin in the hospital. His cellulitis has improved significantly. He will follow up with podiatry after discharge. Total time spent providing and/or coordinating discharge services: 35 minutes
[2018-01-28 11:11] VITALS: BP 106/70
[2018-01-28] MEDS ORDERED: Amoxicillin/Clavulanate 500 MG TABLET PO SCH (17:00)
[2018-01-28] MEDS ORDERED: Doxycycline 100 MG CAPSULE PO SCH (21:00)
[2018-01-29] MEDS ORDERED: Multivit/Ca/Min/Fe/FA 1 TAB TABLET PO SCH (12:00)
== END 2018-01-28 15:24 | disposition home or self-care (01) | DRG 603 ==
LOC: 2NENU 16:22 → EMEROOARM 16:22 → SUATTDRO 18:44 → 2NENU 20:23 → 3NENU 01-26 14:13
PROVIDERS: ADMIT Student in an Organized Health Care Education/Training Program; ATTEND Internal Medicine

== ENCOUNTER 2019-12-16 04:41 | Observation (INO) ==
[2019-12-16] MEDS ORDERED: Tdap (Boostrix) Vaccine 0.5 ML SYRINGE IM ONE (04:51)
[2019-12-16] MEDS ORDERED: 0.9 % Sodium Chloride 1,000 ML IVC ONE (04:51)
[2019-12-16 05:22] LABS: Basophils # 0.1 K/mcL (0.0-0.2); Basophils % 0.7 %; Eosinophils # 0.1 K/mcL (0.0-0.6); Hemoglobin 15.9 g/dL (12.9-16.9); Immature Granulocytes % 0.2 % (0-4); Lymphocytes # 1.6 K/mcL (0.6-4.6); Lymphocytes % 19.8 %; Mean Corpuscular HGB Conc 34.6 g/dL (31.6-35.5); Mean Corpuscular Hemoglobin 35.5 pg (28.0-33.3); Mean Corpuscular Volume 102.7 fL (83.0-100.0); Mean Platelet Volume 8.8 fL (9.4-12.4); Monocytes # 0.5 K/mcL (0.0-1.3); Monocytes % 5.9 %; Platelet Count 263 K/mcL (140-400); Red Blood Count 4.48 M/mcL (4.19-5.50); Red Cell Distribution Width 12.8 % (11.5-14.5); Segmented Neutrophils % 72.4 %; White Blood Count 8.3 K/mcL (4.3-11.1)
[2019-12-16 05:44] LABS: Alanine Aminotransferase 15 Units/L (7-52); Albumin 4.7 g/dL (3.5-5.7); Albumin/Globulin Ratio 1.6 (1.1-2.2); Alkaline Phosphatase 127 Units/L (34-104); Aspartate Amino Transferase 35 Units/L (13-39); BUN/Creatinine Ratio 8 (6-26); Bilirubin,Total 0.5 mg/dL (0.3-1.0); Blood Urea Nitrogen 7 mg/dL (8-23); Calcium 9.4 mg/dL (8.6-10.3); Carbon Dioxide 28 mEq/L (23-29); Chloride 98 mEq/L (98-107); Creatine Kinase 210 Units/L (30-223); Globulin 2.9 g/dL (2.4-3.5); Glucose 129 mg/dL (70-105); Osmolality,Calculated 286 (280-300); Potassium 4.2 mEq/L (3.5-5.1); Sodium 138 mEq/L (136-145); Total Protein 7.6 g/dL (6.4-8.9); eGFR For African Americans > 60 (> 60); eGFR For Non-African Americans > 60 (> 60)
[2019-12-16 05:45] LABS: Troponin I < 0.03 ng/mL (< 0.04)
[2019-12-16 05:48] LABS: Bacteria,Urine Few per hpf (None-Few); Bilirubin,Urine Negative (Negative); Blood,Urine Small (Negative); Clarity,Urine Clear (Clear); Color,Urine Light-Yellow (Yellow); Glucose,Urine (UA) Normal (Normal); Ketones,Urine Negative (Negative); Leukocyte Esterase,Urine Negative (Negative); Mucus,Urine Few per lpf (None-Few); Nitrite,Urine Negative (Negative); Protein,Urine Negative (Neg-Trace); RBC,Urine 0-3 per hpf (0-3); Specific Gravity,Urine 1.007 (1.010-1.025); Urobilinogen,Urine Normal (Normal); WBC,Urine 0-3 per hpf (0-3)
[2019-12-16 05:50] LABS: Ethanol 194 mg/dL (Less than 10)
[2019-12-16] MEDS ORDERED: Naloxone 0.4 MG/ML INJ IVP PRN (09:26)
[2019-12-16] MEDS ORDERED: Ondansetron 4 MG/2 ML VIAL IVP PRN (09:26)
[2019-12-16] MEDS ORDERED: *HR* LORazepam 2 MG/ML VIAL IVP PRN ×3 (09:30→09:32)
[2019-12-16] MEDS ORDERED: Perflutren Lipid Microsphere 1.3 ML in 0.9 % Sodium Chloride 8.7 ML IVP PRN (09:57)
[2019-12-16] MEDS: Metoprolol XL (24 HR) Succ 50 MG TAB.ER.24H PO SCH (10:41)
[2019-12-16 10:43] LABS: INR 0.9; Prothrombin Time 10.6 Seconds (9.4-12.1)
[2019-12-16 10:46] LABS: Activated Partial Thrombo Time 30.7 Seconds (26.0-36.0)
[2019-12-16] MEDS: cloNIDine HCL 0.1 MG TABLET PO SCH ×2 (10:53→21:04)
[2019-12-16 10:58] LABS: Magnesium 2.3 mg/dL (1.6-2.6); Phosphorous 3.2 mg/dL (2.7-4.5)
[2019-12-16 10:59] LABS: Amylase 23 Units/L (29-103); Lipase 10 Units/L (11-82)
[2019-12-16] MEDS ORDERED: amLODIPine 5 MG TABLET PO ONE (13:22)
[2019-12-16] MEDS: *HR* HYDROcodone/Acet 5/325 mg TABLET PO PRN (13:27)
[2019-12-16 14:27] LABS: Amphetamine Screen,Urine Negative ng/mL (Cutoff=1000); Barbiturate Screen,Urine Negative ng/mL (Cutoff=200); Benzodiazepines Screen,Urine Negative ng/mL (Cutoff=200); Cannabinoid Screen,Urine Negative ng/mL (Cutoff = 50); Cocaine Screen,Urine Negative ng/mL (Cutoff= 300); Opiate Screen,Urine Negative ng/mL (Cutoff=300); Phencyclidine Screen,Urine Negative ng/mL (Cutoff=25)
[2019-12-16] MEDS ORDERED: Thiamine (B-1) 100 MG, Folic Acid 1 MG, MVI, adult with vitamin K 10 ML in 0.9 % Sodi... IVPB SCH (18:00)
[2019-12-16] MEDS: *HR* Heparin 5,000 UNIT/ML VIAL SQ SCH (18:33)
[2019-12-17 01:58] LABS: Basophils # 0.1 K/mcL (0.0-0.2); Eosinophils # 0.1 K/mcL (0.0-0.6); Immature Granulocytes % 0.4 % (0-4); Lymphocytes # 1.9 K/mcL (0.6-4.6); Lymphocytes % 26.6 %; Mean Corpuscular HGB Conc 33.9 g/dL (31.6-35.5); Mean Corpuscular Volume 100.2 fL (83.0-100.0); Mean Platelet Volume 9.6 fL (9.4-12.4); Monocytes # 0.9 K/mcL (0.0-1.3); Monocytes % 12.4 %; Platelet Count 236 K/mcL (140-400); Red Blood Count 4.09 M/mcL (4.19-5.50); Red Cell Distribution Width 12.9 % (11.5-14.5); Segmented Neutrophils % 57.6 %
[2019-12-17 02:00] LABS: Hemoglobin 13.9 g/dL (12.9-16.9)
[2019-12-17 02:13] LABS: BUN/Creatinine Ratio 19 (6-26); Blood Urea Nitrogen 15 mg/dL (8-23); Calcium 8.8 mg/dL (8.6-10.3); Carbon Dioxide 25 mEq/L (23-29); Chloride 105 mEq/L (98-107); Glucose 110 mg/dL (70-105); Osmolality,Calculated 287 (280-300); Potassium 3.8 mEq/L (3.5-5.1); Sodium 138 mEq/L (136-145); eGFR For African Americans > 60 (> 60); eGFR For Non-African Americans > 60 (> 60)
[2019-12-17] MEDS: *HR* Heparin 5,000 UNIT/ML VIAL SQ SCH (04:30)
[2019-12-17] MEDS ORDERED: Lisinopril-HCTZ 20-12.5mg TABLET PO SCH (04:30)
[2019-12-17] MEDS: *HR* HYDROcodone/Acet 5/325 mg TABLET PO PRN (08:14)
[2019-12-17] MEDS: cloNIDine HCL 0.1 MG TABLET PO SCH (08:14)
[2019-12-17] MEDS: Metoprolol XL (24 HR) Succ 50 MG TAB.ER.24H PO SCH (08:14)
[2019-12-17 10:16] VITALS: BP 123/73
== END 2019-12-17 16:43 | disposition home or self-care (01) ==
LOC: EMEROOARM 04:41 → 3ANU 04:41
PROVIDERS: ADMIT Internal Medicine; ATTEND Internal Medicine